=== PATIENT | female | born 1950 | race Caucasian/White ===

== ENCOUNTER 2018-09-14 16:28 | Inpatient (IN) ==
[2018-09-14] MEDS ORDERED: Acetaminophen 325 MG Tablet PO ONE (21:57)
[2018-09-14] MEDS ORDERED: Piperacil/Tazo 3.375 GM Premix 3.375 GM/50 ML PIGGYBACK IV.SIG ONE (21:57)
[2018-09-14] MEDS ORDERED: Vancomycin Inj 1,000 MG in Sodium Chlor 0.9% Inj 250 ML IV.SIG ONE (21:57)
--- NOTE | 2018-09-14 22:31 | XR ---
EXAM DATE: 09/14/2018 10:18 PM EST AGE/SEX: 68 years / Female INDICATIONS: Pain, sent by MD. Swelling in left foot, more in 1st digit for the last 2 months. CLINICAL DATA: This is the patient's initial encounter. Patient reports that signs and symptoms have been present for 2 months and indicates a pain score of 2/10. MEDICAL/SURGICAL HISTORY: Diabetes. Gastroesophageal reflux disease. Neuropathy. High blood pr essure. High cholesterol. None. COMPARISON: No prior exams available for comparison. FINDINGS: 3 views the left foot reveal an acute to subacute fracture involving the distal aspect of the proxima l phalanx of the great toe. This includes the articular surface with the interphalangeal joint. No si gnificant angulation or distraction. The remaining bony structures are intact. Spurring of the calcan eus. Degenerative changes involving the midfoot. Atherosclerotic calcifications. CONCLUSION: Acute to subacute fracture involving the proximal phalanx of the great toe as detailed above. Electronically signed by: Cristopher Smith MD Board Certified Radiologist 09/14/2018 10:30 PM EST
[2018-09-14 22:32] LABS: Baso % (Auto) 0.6 % (0.0-2.0); Eos # (Auto) 0.4 th/mm3 (0.0-0.4); Eos % (Auto) 6.2 % (0.0-4.0); Hematocrit 36.5 % (35.0-46.0); Lymph # (Auto) 0.9 th/mm3 (1.0-4.8); Lymph % (Auto) 12.7 % (9.0-44.0); Mean Corpuscular HGB Conc 32.8 % (32.0-36.0); Mean Corpuscular Volume 88.6 fL (80.0-100.0); Mean Platelet Volume 9.3 fL (7.0-11.0); Mono # (Auto) 0.7 th/mm3 (0.0-0.9); Mono % (Auto) 10.8 % (0.0-8.0); Neut # (Auto) 4.7 th/mm3 (1.8-7.7); Neut % (Auto) 69.7 % (16.0-70.0); Platelet Count 217 th/mm3 (150-450); Red Blood Count 4.12 mil/mm3 (4.00-5.30); Red Cell Distribution Width 13.7 % (11.6-17.2); White Blood Count 6.8 th/mm3 (4.0-11.0)
[2018-09-14 22:45] LABS: Carbon Dioxide 25.6 meq/L (21.0-32.0); Potassium 4.3 meq/L (3.5-5.1)
[2018-09-14] MEDS ORDERED: Bisacodyl 10 MG Supp RECTAL PRN (22:45)
[2018-09-14] MEDS ORDERED: Acetaminophen 325 MG Tablet PO PRN (22:45)
[2018-09-14] MEDS ORDERED: Vancomycin Consult Pharmacy OTHER PRN ×2 (22:45→23:12)
--- NOTE | 2018-09-14 22:48 | ED ---
HPI General Chief complaint: Skin/Abscess/Foreign Body Stated complaint: Sent by Doctor Zamarripa/Left foot Time Seen by Provider: 09/14/18 21:50 Source: patient Mode of arrival: ambulatory Limitations: no limitations History of Present Illness HPI narrative: Patient is a 68 year old female, with history of diabetes who comes in due to infection of her left first toe. She says this has been going on for about 4 weeks and has been getting worse. She says she went to her public relations today who took an XR and told her she had osteomyelitis and that she needed to come to the ED. She says she was told she would likely need amputation of her toe. She denies fever or chills. She says she has a burning pain to the toe. Severity is moderate. Related Data Home Medications Medication Instructions Recorded Confirmed famotidine 20 ng PO BID 09/14/18 09/14/18 gabapentin 300 mg PO TID 09/14/18 09/14/18 glipizide 2.5 mg PO DAILY 09/14/18 09/14/18 lisinopril 40 mg PO DAILY 09/14/18 09/14/18 metformin 500 mg PO DAILY 09/14/18 09/14/18 pantoprazole 40 mg PO DAILY 09/14/18 09/14/18 Allergies Allergy/AdvReac Type Severity Reaction Status Date / Time Sulfa (Sulfonamide Allergy Intermediate hives Verified 09/14/18 21:57 Antibiotics) Review of Systems ROS: all other systems reviewed are negative Constitutional Denies chills and Denies fever(s) ENT Denies dizziness Cardiovascular Denies chest pain and Denies dyspnea Respiratory Denies cough and Denies dyspnea Gastrointestinal Denies abdominal pain, Denies nausea and Denies vomiting Musculoskeletal Denies myalgias and Denies arthralgias Integumentary/Breasts Reports sores Neurologic Denies focal weakness and Denies numbness [facility] Medical History Medical History Acid reflux (Acute) Diabetes type 2, controlled (Acute) Heartburn (Acute) Hyperlipidemia (Acute) Hypertension (Acute) Surgical History Surgical History History of cholecystectomy (Acute) Social History Social History Substance History: No History of Abuse Second Hand Smoke Exposure: No Smoking Status: Never smoker How Often Do You Have a Drink Containing Alcohol: Monthly or less Recent Travel in [facility] within the Last 8 Weeks: No Recent Out of Country Travel within the Last 8 Weeks: No Immunization History Tetanus Immunization: >5 Years Exam Narrative Exam Narrative: GENERAL: Awake and alert, in no acute distress. SKIN: Erythema and warmth to the left first toe with wound to the plantar aspect of the toe. HEAD: Atraumatic. Normocephalic. EYES: Pupils equal and round. No scleral icterus. No injection or drainage. ENT: No nasal bleeding or discharge. Mucous membranes pink and moist. NECK: Trachea midline. No JVD. CARDIOVASCULAR: Regular rate and rhythm. No murmur appreciated. RESPIRATORY: No accessory muscle use. Clear to auscultation. Breath sounds equal bilaterally. GASTROINTESTINAL: Abdomen soft, non-tender, nondistended. MUSCULOSKELETAL: No obvious deformities. No clubbing. No cyanosis. Edema of the left foot into the lower leg. Pedal pulse intact. NEUROLOGICAL: Awake and alert. No obvious cranial nerve deficits. Motor grossly within normal limits. Normal speech. PSYCHIATRIC: Appropriate mood and affect; insight and judgment normal. Course Initial Documented Vital Signs Temperature 98.8 F 09/14/18 16:32 Pulse Rate 81 09/14/18 16:32 Respiratory Rate 16 09/14/18 16:32 Blood Pressure 151/70 H 09/14/18 16:32 Pulse Oximetry 98 09/14/18 16:32 Last Documented Vital Signs Temperature 98.8 F 09/14/18 16:32 Pulse Rate 70 09/14/18 21:51 Respiratory Rate 18 09/14/18 21:51 Blood Pressure 162/77 H 09/14/18 21:51 Pulse Oximetry 99 09/14/18 21:51 Medical Decision Making MDM Narrative Medical decision making narrative: Patient is a 68 year old female who comes in due to infection of her left first toe. Exam shows erythema, warmth and edema of the foot. IV established, labs sent. XR of the foot performed. MRI ordered. Given Vancomycin and Zosyn. Admitted for further management. Medical Screen Exam Complete: Yes Emergency Medical Condition: Yes Differential Diagnosis Differential Diagnosis: cellulitis vs osteomyelitis vs fracture Medical Records Medical records reviewed: Yes I reviewed the patient's medical records. Lab Data Lab results reviewed: Yes I reviewed the patient's lab results. Result diagrams: 09/14/18 22:12 09/14/18 22:12 Lab Results 09/14/18 09/14/18 Range/Units 22:12 22:12 WBC 6.8 (4.0-11.0) th/mm3 RBC 4.12 (4.00-5.30) mil/mm3 Hgb 12.0 (11.6-15.3) gm/dL Hct 36.5 (35.0-46.0) % MCV 88.6 (80.0-100.0) fL MCH 29.0 (27.0-34.0) pg MCHC 32.8 (32.0-36.0) % RDW 13.7 (11.6-17.2) % Plt Count 217 (150-450) th/mm3 MPV 9.3 (7.0-11.0) fL Neut % (Auto) 69.7 (16.0-70.0) % Lymph % (Auto) 12.7 (9.0-44.0) % [place] % (Auto) 10.8 H (0.0-8.0) % Eos % (Auto) 6.2 H (0.0-4.0) % Baso % (Auto) 0.6 (0.0-2.0) % Neut # (Auto) 4.7 (1.8-7.7) th/mm3 Lymph # (Auto) 0.9 L (1.0-4.8) th/mm3 [place] # (Auto) 0.7 (0.0-0.9) th/mm3 Eos # (Auto) 0.4 (0.0-0.4) th/mm3 Baso # (Auto) 0.0 (0.0-0.2) th/mm3 WBC Differential . Differential Comment Auto diff final Sodium 137 (136-145) meq/L Potassium 4.3 (3.5-5.1) meq/L Chloride 104 (98-107) meq/L Carbon Dioxide 25.6 (21.0-32.0) meq/L Anion Gap 7 (5-15) meq/L BUN 13 (7-18) mg/dL Creatinine 1.02 H (0.50-1.00) mg/dL Estimated GFR 54 L (>89) mL/min Random Glucose 91 (74-106) mg/dL Calcium 9.0 (8.5-10.1) mg/dL Imaging Data Radiologist's impression: Foot X-Ray 09/14/18 22:08 CONCLUSION: Acute to subacute fracture involving the proximal phalanx of the great toe as detailed above. Discharge Plan Discharge Disposition Patient Disposition: ED Admit(ED Internal Use Only) Discharge Condition Condition: Stable Discharge Order Discharge Orders: ED Use Only Admit Order (Routine); Ordered 09/14/18 Ordered By: Sarah Luna Discharge Details Diagnosis: Osteomyelitis Physicians Team ED Provider: Sarah Luna Primary Care Provider: UNKNOWN, Attending Provider: Ananya Olivia Other Providers: Guille Gautam Discharge Interventions Interventions: Vital Signs Last Done: 09/14/18 21:51 Status ED Status: Admitted Patient
[2018-09-14] MEDS ORDERED: Vancomycin Inj 2,000 MG in Sodium Chlor 0.9% Inj 500 ML IV.SIG STA (23:00)
[2018-09-14] MEDS ORDERED: Gadobutrol PF 10 MMOL/10 ML Vial (for RAD) IV.SIG ONE (23:07)
--- NOTE | 2018-09-14 23:32 | MR ---
EXAM DATE: 09/14/2018 11:23 PM EST AGE/SEX: 68 years / Female INDICATIONS: Osteomyelitis. Left great toe. CLINICAL DATA: This is the patient's initial encounter. Patient reports that signs and symptoms have been present for 2 months and indicates a pain score of 8/10. MEDICAL/SURGICAL HISTORY: . HTN, DM II, HLD, Acid Reflux Cholecystectomy. COMPARISON: [facility], FOOT COMPLETE LEFT 3V, 09/14/2018. . TECHNIQUE: Multiplanar, multisequence MRI examination was performed without contrast and after th e intravenous administration of 10 ml Gadavist (gadobutrol) single exam dose. FINDINGS: Bones: The osseous structures are in normal alignment. Bony edema is identified throughout the mid an d distal portion of the proximal phalanx of the first ray and proximally in the distal phalanx of the same digit. There are no obvious erosions present. Joint Spaces: No joint effusion or loose bodies are seen. The joint spaces are preserved. Tendons: The flexor tendons are intact. Soft Tissues: Unremarkable. Other: The plantar fascia is intact. No signal abnormalities are seen in the plantar musculature. Post Contrast: There are no abnormal areas of enhancement in the marrow, muscle or soft tissues on im ages obtained after intravenous administration of gadolinium. CONCLUSION: 1. Bony edema in the mid and distal portions of the proximal phalanx of the great toe characteristic of the fracture identified on plain film. 2. Mild edema within the proximal half of the distal phalanx of the great toe is probably reactive s econdary to the comminuted fracture of the adjacent phalanx. Electronically signed by: Jose Guadalupe Hein MD Board Certified Radiologist 09/14/2018 11:30 PM EST
[2018-09-15] MEDS ORDERED: Piperacil/Tazo 3.375 GM Premix 3.375 GM/50 ML PIGGYBACK IV.SIG SCH (02:00)
[2018-09-15] MEDS: Sod Chloride 0.9% Inj 1,000 ML IV.CONT SCH ×4 (02:21→23:38)
[2018-09-15] MEDS ORDERED: Insulin NovoLOG Aspart Correctional Sugar Inj SQ SCH (03:00)
[2018-09-15] MEDS: Piperacil/Tazo 3.375 GM Premix 3.375 GM/50 ML PIGGYBACK IV.SIG SCH ×4 (07:01→23:42)
[2018-09-15 07:23] LABS: Baso % (Auto) 0.9 % (0.0-2.0); Eos # (Auto) 0.3 th/mm3 (0.0-0.4); Eos % (Auto) 5.1 % (0.0-4.0); Hematocrit 33.1 % (35.0-46.0); Lymph # (Auto) 0.4 th/mm3 (1.0-4.8); Lymph % (Auto) 7.5 % (9.0-44.0); Mean Corpuscular HGB Conc 33.2 % (32.0-36.0); Mean Corpuscular Hemoglobin 29.8 pg (27.0-34.0); Mean Corpuscular Volume 89.9 fL (80.0-100.0); Mean Platelet Volume 9.2 fL (7.0-11.0); Mono # (Auto) 0.8 th/mm3 (0.0-0.9); Mono % (Auto) 14.2 % (0.0-8.0); Neut # (Auto) 4.1 th/mm3 (1.8-7.7); Neut % (Auto) 72.3 % (16.0-70.0); Platelet Count 179 th/mm3 (150-450); Red Blood Count 3.68 mil/mm3 (4.00-5.30); Red Cell Distribution Width 13.6 % (11.6-17.2); White Blood Count 5.6 th/mm3 (4.0-11.0)
[2018-09-15 07:33] LABS: Calcium 8.4 mg/dL (8.5-10.1); Carbon Dioxide 24.1 meq/L (21.0-32.0); Potassium 4.3 meq/L (3.5-5.1)
[2018-09-15] MEDS: Gabapentin 300 MG Capsule PO SCH ×3 (08:37→18:10)
[2018-09-15] MEDS: Insulin NovoLOG Aspart Correctional Sugar Inj SQ SCH ×4 (08:37→21:01)
[2018-09-15] MEDS: Senna/Docusate Sodium 8.6/50 MG Tablet PO SCH ×2 (08:38→21:02)
[2018-09-15] MEDS: Lisinopril 20 MG Tablet PO SCH (08:38)
[2018-09-15] MEDS ORDERED: Morphine Inj 4 MG/ML Vial IV.PUSH PRN (09:46)
[2018-09-15] MEDS ORDERED: Acetaminophen 325 MG Tablet PO PRN (09:46)
[2018-09-15] MEDS ORDERED: Naloxone Inj 0.4 MG/ML Vial IV.PUSH PRN (09:46)
--- NOTE | 2018-09-15 10:01 | P.HPIM ---
History of Present Illness Primary Care Physician: UNKNOWN Chief Complaint: Diabetic foot infection History of Present Illness: This is a 68-year-old female with a history of diabetes mellitus, hypertension, hyperlipidemia and GERD. She was sent by her site damage prevention technician to the ED because of diabetic foot infection with suspected osteomyelitis. Patient is being followed by Dr. Zamarripa. States she has improving right foot sores over metatarsal head and plantar surface of the great toe. She also has left great toe swelling and pain for 2 months. It has an ulcer on the plantar surface with drainage for the past 6 weeks no fever and chills. Patient reports of constant stinging sensation. She had outpatient x- ray yesterday which showed osteomyelitis. In the ED, repeat x-ray shows acute to subacute fracture involving the proximal phalanx of the great toe. Foot MRI with bony edema in the mid and distal portions of the proximal phalanx of the great toe. She has been started on IV vancomycin and Zosyn. All other systems reviewed negative Inpatient Certification Inpatient Certification: I certify that the inpatient services were ordered in accordance with Medicare regulations governing the order. This includes certification that hospital inpatient services are reasonable and necessary and in the case of services not specified as inpatient-only under 42 CFR 419.22(n), that they are appropriately provided as inpatient services in accordance to with the 2-midnight benchmark under 43 CFR 412.3(e) Estimated Total Length of Stay (Days): 3 Plans for Post Hospital Care: Not yet determined Review of Systems Review of Systems: all other systems reviewed are negative [facility] Medical History Medical History Acid reflux (Acute) Diabetes type 2, controlled (Acute) Heartburn (Acute) Hyperlipidemia (Acute) Hypertension (Acute) Surgical History Surgical History History of cholecystectomy (Acute) Family History Family History Other Colon cancer Social History Social History Substance History: No History of Abuse Second Hand Smoke Exposure: No Smoking Status: Never smoker How Often Do You Have a Drink Containing Alcohol: Monthly or less Recent Travel in [facility] within the Last 8 Weeks: No Recent Out of Country Travel within the Last 8 Weeks: No Immunization History Tetanus Immunization: >5 Years Medications and Allergies Allergies Allergy/AdvReac Type Severity Reaction Status Date / Time Sulfa (Sulfonamide Allergy Intermediate hives Verified 09/14/18 21:57 Antibiotics) Home Medications Medication Instructions Recorded Confirmed Type famotidine 20 ng PO BID 09/14/18 09/14/18 History gabapentin 300 mg PO TID 09/14/18 09/14/18 History glipizide 2.5 mg PO DAILY 09/14/18 09/14/18 History lisinopril 40 mg PO DAILY 09/14/18 09/14/18 History metformin 500 mg PO DAILY 09/14/18 09/14/18 History pantoprazole 40 mg PO DAILY 09/14/18 09/14/18 History Active Medications: Active Medications Acetaminophen (Tylenol) 650 mg PO Q4H PRN PRN Reason: Temp > 100.4 Last Admin: 09/15/18 08:38 Dose: 650 mg Al Hydroxide/Mg Hydroxide (Milk Of Magnesia Liq) 30 ml PO Q12H PRN PRN Reason: Mild Constipation Bisacodyl (Dulcolax Supp) 10 mg RECTAL DAILY PRN PRN Reason: SEVERE CONSITIPATION Dextrose (D50w Vial) 50 ml IV.PUSH UNSCH PRN PRN Reason: PER HYPOGLYCEMIA PROTOCOL Gabapentin (Neurontin) 300 mg PO TID [facility] Last Admin: 09/15/18 08:37 Dose: 300 mg Glucagon (Glucagon Inj) 1 mg OTHER PRN PRN PRN Reason: for Hypoglycemia Protocol Sodium Chloride (Ns Inj) 1,000 mls @ 100 mls/hr IV.CONT .Q10H [facility] Last Admin: 09/15/18 02:21 Dose: 100 mls/hr Piperacillin/Tazobactam/Dextrose (Zosyn 3.375 Gm Premix) 3.375 gm in 50 mls @ 100 mls/hr IV.SIG Q6H KITTY Last Infusion: 09/15/18 08:00 Dose: Infused Vancomycin HCl 2,000 mg/ (Sodium Chloride) 520 mls @ 250 mls/hr IV.SIG Q24H KITTY Insulin Aspart (Novolog Insulin Correctional Sugar Inj) 0 unit SQ ACHS KITTY; Protocol Last Admin: 09/15/18 08:37 Dose: Not Given Lactulose (Lactulose Liq) 30 ml PO DAILY PRN PRN Reason: SEVERE CONSITIPATION Lisinopril (Prinivil) 40 mg PO DAILY [facility] Last Admin: 09/15/18 08:38 Dose: 40 mg Miscellaneous Information ([facility] Ordered Lab Info) 1 each OTHER ONCE ONE Stop: 09/18/18 00:46 Ondansetron HCl (Zofran Inj) 4 mg IV.PUSH Q6H PRN PRN Reason: NAUSEA OR VOMITING Pantoprazole Sodium (Protonix) 40 mg PO DAILY [facility] Last Admin: 09/15/18 08:37 Dose: 40 mg Pharmacy Profile Note (Vancomycin Consult Pharmacy) 1 each OTHER UNSCH PRN PRN Reason: Pharmacy to dose Senna/Docusate Sodium (Yadira-Colace) 1 tab PO BID [facility] Last Admin: 09/15/18 08:38 Dose: Not Given Sennosides (Senokot) 17.2 mg PO Q12H PRN PRN Reason: Moderate Constipation Sodium Chloride (Ns Flush) 2 ml IV.FLUSH BID [facility] Last Admin: 09/15/18 08:39 Dose: 2 ml Sodium Chloride (Ns Flush) 2 ml IV.FLUSH PRN PRN PRN Reason: FLUSH AFTER USING IV ACCESS Physical Exam Vital signs: Vital Signs 09/14/18 16:32 09/14/18 21:51 09/14/18 23:51 Temperature 98.8 F Pulse Rate 81 70 59 L Respiratory Rate 16 18 18 Blood Pressure 151/70 H 162/77 H 150/91 H Pulse Oximetry 98 99 98 09/15/18 05:11 09/15/18 07:33 Temperature Pulse Rate 64 72 Respiratory Rate 18 16 Blood Pressure 129/62 122/81 Pulse Oximetry 100 Intake & Output 09/14/18 09/15/18 09/15/18 18:59 06:59 18:59 Intake Total 590 / 590 50 / 50 Balance 590 / 590 50 / 50 Weight 101.605 kg Intake: IV 590 / 590 50 / 50 Zosyn 3.375 GM Premix 3.375 gm 50 / 50 50 / 50 In 50 ml @ 100 mls/hr IV.SIG Q6H KITTY Rx#:[id number] Vancomycin Inj 2,000 MG In NS 540 / 540 Inj 500 ML @ 250 mls/hr IV.SIG STAT STA Rx#:[id number] Narrative: GENERAL: Well-developed and well-nourished in no distress SKIN: Warm and dry. HEAD: Atraumatic. Normocephalic. EYES: Pupils equal and round. No scleral icterus. No injection or drainage. ENT: No nasal bleeding or discharge. Mucous membranes pink and moist. NECK: Trachea midline. No JVD. CARDIOVASCULAR: Regular rate and rhythm. RESPIRATORY: No accessory muscle use. Clear to auscultation. Breath sounds equal bilaterally. GASTROINTESTINAL: Abdomen soft, non-tender, nondistended. MUSCULOSKELETAL: Extremities without clubbing, cyanosis, or edema. No obvious deformities. Ulcer plantar surface right great toe. Left foot with slight swelling, warmth and erythema in the forefoot especially in the great toe area. It is tender to touch. She also has a draining ulcer on the plantar surface of the right great toe NEUROLOGICAL: Awake and alert. No obvious cranial nerve deficits. Motor grossly within normal limits. Five out of 5 muscle strength in the arms and legs. Normal speech. PSYCHIATRIC: Appropriate mood and affect; insight and judgment normal. Results Labs CBC & Chem 7: 09/15/18 06:46 09/15/18 06:46 Imaging Impressions Foot X-Ray 09/14/18 22:08 CONCLUSION: Acute to subacute fracture involving the proximal phalanx of the great toe as detailed above. Foot MRI 09/14/18 22:21 CONCLUSION: 1. Bony edema in the mid and distal portions of the proximal phalanx of the great toe characteristic of the fracture identified on plain film. 2. Mild edema within the proximal half of the distal phalanx of the great toe is probably reactive secondary to the comminuted fracture of the adjacent phalanx. Caprini VTE Risk Assessment Caprini VTE Risk Assessment: No/Low Risk (score <= 1) Caprini Risk Assessment Model: Point Value = 1 Point Value = 2 Point Value = 3 Point Value = 5 Age 41-60 Minor surgery BMI > 25 kg/m2 Swollen legs Varicose veins or History of unexplained or recurrent spontaneous Oral contraceptives or hormone replacement Sepsis (< 1 month) Serious lung disease, including pneumonia (< 1 month) Abnormal pulmonary function Acute myocardial infarction Congestive heart failure (< 1 month) History of inflammatory bowel disease Medical patient at bed rest Age 61-74 Arthroscopic surgery Major open surgery (> 45 min) Laparoscopic surgery (> 45 min) Malignancy Confined to bed (> 72 hours) Immobilizing plaster cast Central venous access Age >= 75 History of VTE Family history of VTE Factor V Leiden Prothrombin [id number] Lupus anticoagulant Anticardiolipin antibodies Elevated serum homocysteine Heparin-induced thrombocytopenia Other congenital or acquired thrombophilia Stroke (< 1 month) Elective arthroplasty Hip, pelvis, or leg fracture Acute spinal cord injury (< 1 month) Prophylaxis Regimen: Total Risk Factor Score Risk Level Prophylaxis Regimen 0-1 Low Early ambulation 2 Moderate Order ONE of the following: *Sequential Compression Device (SCD) *Heparin 5000 units SQ BID 3-4 Higher Order ONE of the following medications: *Heparin 5000 units SQ TID *Enoxaparin/Lovenox 40 mg SQ daily (WT < 150 kg, CrCl > 30 mL/min) *Enoxaparin/Lovenox 30 mg SQ daily (WT < 150 kg, CrCl > 10-29 mL/min) *Enoxaparin/Lovenox 30 mg SQ BID (WT < 150 kg, CrCl > 30 mL/min) AND/OR *Sequential Compression Device (SCD) 5 or more Highest Order ONE of the following medications: *Heparin 5000 units SQ TID (Preferred with Epidurals) *Enoxaparin/Lovenox 40 mg SQ daily (WT < 150 kg, CrCl > 30 mL/min) *Enoxaparin/Lovenox 30 mg SQ daily (WT < 150 kg, CrCl > 10-29 mL/min) *Enoxaparin/Lovenox 30 mg SQ BID (WT < 150 kg, CrCl > 30 mL/min) AND *Sequential Compression Device (SCD) Assessment and Plan Plan This is a 68-year-old female with a history of diabetes mellitus, hypertension, hyperlipidemia and GERD. She was sent by her site damage prevention technician to the ED because of diabetic foot infection with suspected osteomyelitis involving the left great toe. Repeat x-ray shows acute to subacute fracture involving the proximal phalanx of the great toe. Foot MRI with bony edema in the mid and distal portions of the proximal phalanx of the great toe. Diabetic foot infection involving the left great toe with ulceration on the plantar surface. Keep n.p.o. awaiting podiatry consultation. Continue IV vancomycin and Zosyn and follow-up cultures. Pain management with Lortab and IV morphine counseled regarding narcotics Mild anemia 2/2 hemodilution. No gross bleeding will monitor DVT prophylaxis with SCD and early ambulation
[2018-09-15 18:09] LABS: Activated Partial Thrombo Time 30.9 sec (23.4-31.7); INR 1.1 Ratio
--- NOTE | 2018-09-15 18:39 | P.CON ---
History of Present Illness Service: Foot and ankle surgery/podiatry Consult date: 09/15/18 Reason for Consult: Right hallux infection Primary Care Provider: UNKNOWN Chief Complaint: Diabetic foot infection History of Present Illness: Podiatry consulted for this 68-year-old female with history of diabetes, hypertension, hyperlipidemia and GERD for right hallux possible osteomyelitis and infection. Patient was sent in to the hospital by her wound treatment rn Dr. Zamarripa. She states she does not recall any trauma to the toe she did not drop anything on it. Patient denies any nausea vomiting fevers and chills. Patient states there is been an ulcer for over 1 month. PMF - History History Provided By: Patient - Medical History Medical History: Medical History (Last Reviewed 09/15/18 @ 18:41 by Sarah Cox DPM) Acid reflux Diabetes type 2, controlled Heartburn Hyperlipidemia Hypertension - Surgical History Surgical History: Surgical History (Last Reviewed 09/15/18 @ 18:41 by Sarah Cox DPM) History of cholecystectomy - Family History Family History: Family History (Last Reviewed 09/15/18 @ 18:41 by Sarah Cox DPM) Other Colon cancer - Tobacco History Second Hand Smoke Exposure: No Tobacco Use In Past 30 Days: No Smoking Status: Never smoker - Alcohol History How Often Do You Have a Drink Containing Alcohol: Monthly or less - Substance Use History Substance History: No History of Abuse - Travel History Recent Travel in the [place] Within the Last 8 Weeks: No Recent Travel Out of the Country Within the Last 8 Weeks: No - Immunization History Tetanus Immunization: >5 Years Hx Influenza Vaccine This Season: Yes Medications and Allergies Active Medications: Active Medications Acetaminophen (Tylenol) 650 mg PO Q4H PRN PRN Reason: Temp > 100.4 Last Admin: 09/15/18 08:38 Dose: 650 mg Acetaminophen (Tylenol) 650 mg PO Q6HR PRN PRN Reason: PAIN SCALE 1 TO 2 Hydrocodone Bitart/Acetaminophen ([place] 5/325) 1 tab PO Q4H PRN PRN Reason: PAIN SCALE 3 TO 5 Hydrocodone Bitart/Acetaminophen ([place] 7.5/325) 1 tab PO Q4H PRN PRN Reason: PAIN SCALE 6 TO 10 Al Hydroxide/Mg Hydroxide (Milk Of Magnesia Liq) 30 ml PO Q12H PRN PRN Reason: Mild Constipation Bisacodyl (Dulcolax Supp) 10 mg RECTAL DAILY PRN PRN Reason: SEVERE CONSITIPATION Dextrose (D50w Vial) 50 ml IV.PUSH UNSCH PRN PRN Reason: PER HYPOGLYCEMIA PROTOCOL Gabapentin (Neurontin) 300 mg PO TID [facility] Last Admin: 09/15/18 18:10 Dose: 300 mg Glucagon (Glucagon Inj) 1 mg OTHER PRN PRN PRN Reason: for Hypoglycemia Protocol Sodium Chloride (Ns Inj) 1,000 mls @ 100 mls/hr IV.CONT .Q10H [facility] Last Admin: 09/15/18 10:28 Dose: 100 mls/hr Piperacillin/Tazobactam/Dextrose (Zosyn 3.375 Gm Premix) 3.375 gm in 50 mls @ 100 mls/hr IV.SIG Q6H [facility] Last Admin: 09/15/18 18:10 Dose: 100 mls/hr Vancomycin HCl 2,000 mg/ (Sodium Chloride) 520 mls @ 250 mls/hr IV.SIG Q24H [facility] Insulin Aspart (Novolog Insulin Correctional Sugar Inj) 0 unit SQ ACHS [facility]; Protocol Last Admin: 09/15/18 18:10 Dose: Not Given Lactulose (Lactulose Liq) 30 ml PO DAILY PRN PRN Reason: SEVERE CONSITIPATION Lisinopril (Prinivil) 40 mg PO DAILY [facility] Last Admin: 09/15/18 08:38 Dose: 40 mg Miscellaneous Information ([facility] Ordered Lab Info) 1 each OTHER ONCE ONE Stop: 09/18/18 00:46 Morphine Sulfate (Morphine Inj) 4 mg IV.PUSH Q3H PRN PRN Reason: BREAKTHROUGH PAIN Naloxone HCl (Narcan Inj) 0.4 mg IV.PUSH UNSCH PRN PRN Reason: SEE LABEL COMMENTS Ondansetron HCl (Zofran Inj) 4 mg IV.PUSH Q6H PRN PRN Reason: NAUSEA OR VOMITING Pantoprazole Sodium (Protonix) 40 mg PO DAILY [facility] Last Admin: 09/15/18 08:37 Dose: 40 mg Pharmacy Profile Note (Vancomycin Consult Pharmacy) 1 each OTHER UNSCH PRN PRN Reason: Pharmacy to dose Senna/Docusate Sodium (Yadira-Colace) 1 tab PO BID [facility] Last Admin: 09/15/18 08:38 Dose: Not Given Sennosides (Senokot) 17.2 mg PO Q12H PRN PRN Reason: Moderate Constipation Sodium Chloride (Ns Flush) 2 ml IV.FLUSH BID [facility] Last Admin: 09/15/18 08:39 Dose: 2 ml Sodium Chloride (Ns Flush) 2 ml IV.FLUSH PRN PRN PRN Reason: FLUSH AFTER USING IV ACCESS Allergies Allergy/AdvReac Type Severity Reaction Status Date / Time Sulfa (Sulfonamide Allergy Intermediate hives Verified 09/14/18 21:57 Antibiotics) Home Medications Medication Instructions Recorded Confirmed Type famotidine 20 ng PO BID 09/14/18 09/14/18 History gabapentin 300 mg PO TID 09/14/18 09/14/18 History glipizide 2.5 mg PO DAILY 09/14/18 09/14/18 History lisinopril 40 mg PO DAILY 09/14/18 09/14/18 History metformin 500 mg PO DAILY 09/14/18 09/14/18 History pantoprazole 40 mg PO DAILY 09/14/18 09/14/18 History Physical Exam Vital signs: Vital Signs 09/14/18 21:51 09/14/18 23:51 09/15/18 05:11 Temperature Pulse Rate 70 59 L 64 Respiratory Rate 18 18 18 Blood Pressure 162/77 H 150/91 H 129/62 Pulse Oximetry 99 98 09/15/18 07:33 09/15/18 12:17 09/15/18 12:36 Temperature Pulse Rate 72 72 67 Respiratory Rate 16 19 17 Blood Pressure 122/81 162/78 H 138/66 Pulse Oximetry 100 97 98 09/15/18 13:19 09/15/18 13:55 09/15/18 16:00 Temperature 98.2 F 98.4 F Pulse Rate 67 66 68 Respiratory Rate 18 18 Blood Pressure 140/65 146/67 H Pulse Oximetry 100 98 Intake & Output 09/14/18 09/15/18 09/15/18 18:59 06:59 18:59 Intake Total 590 / 590 1100 / 1100 Balance 590 / 590 1100 / 1100 Weight 101.605 kg 103.7 kg Intake: IV 590 / 590 1100 / 1100 NS Inj 1,000 ML @ 100 mls/hr IV 1000 / 1000 .CONT .Q10H [facility] Rx#:[id number] Zosyn 3.375 GM Premix 3.375 gm 50 / 50 100 / 100 In 50 ml @ 100 mls/hr IV.SIG Q6H [facility] Rx#:[id number] Vancomycin Inj 2,000 MG In NS 540 / 540 Inj 500 ML @ 250 mls/hr IV.SIG STAT [facility] Rx#:[id number] Other: Date of Last Bowel Movement 09/13/18 Weight On Admission 103.7 kg Narrative: GENERAL: This is a well-nourished, well-developed patient, in no apparent distress. SKIN: Right hallux ulcer HEAD: Atraumatic. EYES: Pupils equal round and reactive. ENT: Airway patent. NECK: Trachea midline. RESPIRATORY: Nonlabored breathing. MUSCULOSKELETAL:. Negative Homans sign bilaterally. NEUROLOGICAL: Awake and alert. Normal speech. Lower extremity physical exam: Vascular: Dorsalis pedis nonpalpable, posterior tibial nonpalpable. Capillary refill time within normal limits to digits x5 bilateral foot. Edema present right hallux with bulbous appearance. Neuro: Gross sensation intact to bilateral lower extremity. Pinpoint sensation decrease. No hyperalgesia noted to bilateral lower extremity Dermatology: Right hallux with increased erythema and edema noted and medial wound. There is seropurulent drainage to this wound. Wound is deep with probe to bone. Hyperkeratotic edges. Musculoskeletal: No tenderness to palpation noted. Results - Labs CBC & Chem 7: 09/15/18 06:46 09/15/18 06:46 Labs: Laboratory Results - last 24 hr 09/14/18 09/14/18 09/15/18 22:12 22:12 05:07 WBC 6.8 RBC 4.12 Hgb 12.0 Hct 36.5 MCV 88.6 MCH 29.0 MCHC 32.8 RDW 13.7 Plt Count 217 MPV 9.3 Neut % (Auto) 69.7 Lymph % (Auto) 12.7 [place] % (Auto) 10.8 H Eos % (Auto) 6.2 H Baso % (Auto) 0.6 Neut # (Auto) 4.7 Lymph # (Auto) 0.9 L [place] # (Auto) 0.7 Eos # (Auto) 0.4 Baso # (Auto) 0.0 WBC Differential . Differential Comment Auto diff final ESR PT INR APTT Sodium 137 Potassium 4.3 Chloride 104 Carbon Dioxide 25.6 Anion Gap 7 BUN 13 Creatinine 1.02 H Estimated GFR 54 L POC Glucose 76 Random Glucose 91 Calcium 9.0 09/15/18 09/15/18 09/15/18 06:46 06:46 06:46 WBC 5.6 RBC 3.68 L Hgb 11.0 L Hct 33.1 L MCV 89.9 MCH 29.8 MCHC 33.2 RDW 13.6 Plt Count 179 MPV 9.2 Neut % (Auto) 72.3 H Lymph % (Auto) 7.5 L [place] % (Auto) 14.2 H Eos % (Auto) 5.1 H Baso % (Auto) 0.9 Neut # (Auto) 4.1 Lymph # (Auto) 0.4 L [place] # (Auto) 0.8 Eos # (Auto) 0.3 Baso # (Auto) 0.0 WBC Differential . Differential Comment Auto diff final ESR 40 H PT INR APTT Sodium 141 Potassium 4.3 Chloride 109 H Carbon Dioxide 24.1 Anion Gap 8 BUN 12 Creatinine 0.98 Estimated GFR 56 L POC Glucose Random Glucose 86 Calcium 8.4 L 09/15/18 09/15/18 09/15/18 08:35 13:08 16:41 WBC RBC Hgb Hct MCV MCH MCHC RDW Plt Count MPV Neut % (Auto) Lymph % (Auto) [place] % (Auto) Eos % (Auto) Baso % (Auto) Neut # (Auto) Lymph # (Auto) [place] # (Auto) Eos # (Auto) Baso # (Auto) WBC Differential Differential Comment ESR PT INR APTT Sodium Potassium Chloride Carbon Dioxide Anion Gap BUN Creatinine Estimated GFR POC Glucose 94 101 82 Random Glucose Calcium 09/15/18 17:00 WBC RBC Hgb Hct MCV MCH MCHC RDW Plt Count MPV Neut % (Auto) Lymph % (Auto) [place] % (Auto) Eos % (Auto) Baso % (Auto) Neut # (Auto) Lymph # (Auto) [place] # (Auto) Eos # (Auto) Baso # (Auto) WBC Differential Differential Comment ESR PT 11.0 INR 1.1 APTT 30.9 Sodium Potassium Chloride Carbon Dioxide Anion Gap BUN Creatinine Estimated GFR POC Glucose Random Glucose Calcium - Imaging Impressions Foot X-Ray 09/14/18 22:08 CONCLUSION: Acute to subacute fracture involving the proximal phalanx of the great toe as detailed above. Foot MRI 09/14/18 22:21 CONCLUSION: 1. Bony edema in the mid and distal portions of the proximal phalanx of the great toe characteristic of the fracture identified on plain film. 2. Mild edema within the proximal half of the distal phalanx of the great toe is probably reactive secondary to the comminuted fracture of the adjacent phalanx. Assessment and Plan - Plan 68-year-old female with right hallux infection Patient examined and vitals all questions answered Suspect pathologic fracture from bone infection Bone scan to rule out osteomyelitis Secondary to clinical appearance of right hallux do suspect osteomyelitis Will sign out care to Dr. Gautam who will review imaging and discuss intervention with patient Anticipate surgical intervention in the next 48 hours
[2018-09-16] MEDS: Vancomycin Inj 2,000 MG in Sodium Chlor 0.9% Inj 500 ML IV.SIG SCH (01:47)
[2018-09-16] MEDS ORDERED: Chlorhexidine Gluconate 2% 1 Pack (2 Cloths) TOPICAL ONE (06:00)
[2018-09-16] MEDS ORDERED: Sodium Chlor 0.9% Inj 500 ML IV.CONT ONE (06:00)
[2018-09-16] MEDS: Piperacil/Tazo 3.375 GM Premix 3.375 GM/50 ML PIGGYBACK IV.SIG SCH ×4 (06:16→17:44)
[2018-09-16] MEDS: Sod Chloride 0.9% Inj 1,000 ML IV.CONT SCH ×3 (06:16→19:56)
[2018-09-16] MEDS: Lisinopril 20 MG Tablet PO SCH (08:19)
[2018-09-16] MEDS: Gabapentin 300 MG Capsule PO SCH ×3 (08:19→16:59)
[2018-09-16] MEDS: Senna/Docusate Sodium 8.6/50 MG Tablet PO SCH ×2 (08:19→20:50)
[2018-09-16] MEDS: Insulin NovoLOG Aspart Correctional Sugar Inj SQ SCH ×4 (08:20→20:50)
--- NOTE | 2018-09-16 10:22 | P.PNIM ---
Subjective Interval history: no fever or pain left hallux swelling started a=out as sore at the bottom about 2- 3 ff by Podaitry-started around 2 weeks ago does not recall any trauma no fever or chills diabetic- good hypoglycemic awareness- PCP Dr Parks- stateslast A1C- 5.9 on glipizide and metformin Physical Exam Vital signs: Vital Signs 09/15/18 12:17 09/15/18 12:36 09/15/18 13:19 Temperature Pulse Rate 72 67 67 Respiratory Rate 19 17 Blood Pressure 162/78 H 138/66 Pulse Oximetry 97 98 09/15/18 13:55 09/15/18 16:00 09/15/18 20:00 Temperature 98.2 F 98.4 F 98.2 F Pulse Rate 66 68 99 H Respiratory Rate 18 18 18 Blood Pressure 140/65 146/67 H 134/59 L Pulse Oximetry 100 98 98 09/15/18 23:15 09/16/18 00:00 09/16/18 04:00 Temperature 98.5 F Pulse Rate 72 76 69 Respiratory Rate 18 Blood Pressure 127/76 Pulse Oximetry 94 L 09/16/18 04:10 09/16/18 08:00 Temperature 98.6 F 98.1 F Pulse Rate 73 67 Respiratory Rate 18 18 Blood Pressure 111/53 L 123/58 L Pulse Oximetry 94 L 97 Intake & Output 09/15/18 09/16/18 09/16/18 18:59 06:59 18:59 Intake Total 1150 / 1150 1600 / 1600 50 / 50 Output Total 800 / 800 Balance 1150 / 1150 800 / 800 50 / 50 Weight 103.7 kg 103 kg Intake: IV 1150 / 1150 1570 / 1570 50 / 50 NS Inj 1,000 ML @ 100 mls/hr IV 1000 / 1000 1000 / 1000 .CONT .Q10H [facility] Rx#:[id number] Zosyn 3.375 GM Premix 3.375 gm 150 / 150 50 / 50 50 / 50 In 50 ml @ 100 mls/hr IV.SIG Q6H [facility] Rx#:[id number] Vancomycin Inj 2,000 MG In NS 520 / 520 Inj 500 ML @ 250 mls/hr IV.SIG Q24H [facility] Rx#:[id number] Oral 30 / 30 Output: Urine 800 / 800 Other: # Voids 2 Date of Last Bowel Movement 09/13/18 09/13/18 # Bowel Movements 0 0 Weight On Admission 103.7 kg Narrative: awake and alert no distress anciteric neck supple lungs- clear regular rhythm abdomensoft extrmeties left hallux- sausage shaped, + erythema mild extending to that anterior aspect fo the foot- per patient erythema has imp[roved a lot swelling improved too per patient overnight right foot - no open wounds, good epripheral pulses Results Labs CBC & Chem 7: 09/15/18 06:46 09/15/18 06:46 Labs: Microbiology 09/14/18 22:05 Blood - Peripheral Aerobic Blood Culture - Preliminary No growth in 1 day 09/14/18 22:05 Blood - Peripheral Anaerobic Blood Culture - Preliminary No growth in 1 day 09/14/18 22:10 Blood - Peripheral Aerobic Blood Culture - Preliminary No growth in 1 day 09/14/18 22:10 Blood - Peripheral Anaerobic Blood Culture - Preliminary No growth in 1 day Assessment and Plan Plan 68-year-old female with a history of diabetes mellitus, hypertension, hyperlipidemia and GERD. She was sent by her pot operator to the ED because of diabetic foot infection with suspected osteomyelitis involving the left great toe. Repeat x-ray shows acute to subacute fracture involving the proximal phalanx of the great toe. Foot MRI with bony edema in the mid and distal portions of the proximal phalanx of the great toe. Diabetic foot infection involving the left great toe- Cellulitis with ulceration on the plantar surface. with Subacute fracture on imaging study - - on Imaging study no signs of OM - patient does not recall any trauma - n.p.o. awaiting podiatry consultation. -Continue IV vancomycin and Zosyn and follow-up cultures. ESR mildly elevated -Pain management with Lortab and IV morphine counseled regarding narcotics -Podiatry ff- plan for procedure ? possible amputation- patient has not been informed by Podiatry of actual procedure - - jailene touch base with Podiatry Mild anemia 2/2 hemodilution. No gross bleeding will monitor DM type 2- A1C- 5.9 - restart home meds post procedure HTN- constinue on Triny DVT prophylaxis with SCD and early ambulation Progress Note: Quality VTE Deep Vein Thrombosis/Pulmonary Embolism Present on Admission: No
--- NOTE | 2018-09-16 11:41 | ECHRPT ---
EXAM DATE: 09/16/2018 11:33 AM EST AGE/SEX: 68 years / Female INDICATIONS: Osteomyelitis CLINICAL DATA: This is the patient's initial encounter. Patient reports that signs and symptoms have been present for 2 months and indicates a pain score of 3/10. MEDICAL/SURGICAL HISTORY: . acid reflux, type II diabetes mellitus, hyperlipidemia, hypertensio n . cholecystectomy COMPARISON: No prior exams available for comparison. TECHNIQUE: Four-cuff ankle and brachial pressures were obtained. Pulse cuff waveform tracings of the ankles were recorded, and ankle-brachial indices were calculated. PRESSURES (mmHg): Brachial (arm) : RIGHT: iv site, LEFT: 131 Ankle : RIGHT: 179, LEFT: 156 [place] : RIGHT: 1.37, LEFT: 1.19 TBI : RIGHT: 0.96, LEFT: CNO >220 FINDINGS: Pulsed-Cuff Waveform: There are good upstroke and a dicrotic downstroke of the tracings. Other: None. CONCLUSION: Elevated ankle-brachial index on the right. This may reflect densely calcified vessels. CT angiograph y of the abdominal aorta and lower extremities is recommended for further evaluation if clinically in dicated. The toe brachial indices are also nondiagnostic Electronically signed by: Tim Ortega MD Board Certified Radiologist 09/16/2018 11:39 AM EST
[2018-09-16] MEDS: Dextrose 50% in Water 50 ML Vial IV.PUSH PRN ×2 (13:46→17:05)
--- NOTE | 2018-09-16 14:20 | NM ---
EXAM DATE: 09/16/2018 2:04 PM EST AGE/SEX: 68 years / Female INDICATIONS: Ulcer on left hallux. CLINICAL DATA: This is the patient's initial encounter. Patient reports that signs and symptoms have been present for 1 month and indicates a pain score of 0/10. MEDICAL/SURGICAL HISTORY: Diabetes. Hypertension. Hyperlipidemia. Cholecystectomy. COMPARISON: No prior exams available for comparison. TECHNIQUE: Bone scan was performed in sagittal, axial and coronal planes. Attenuation correction was performed with computed tomography and both the attenuation correction and non-attenuation corrected data sets were reviewed. PRIOR BONE SCANS: No correlative bone scan available for comparison. DOSE: 32.0 mCi Tc99m MDP IV IMAGING: SPECT/CT imaging with fusion was performed. RADIATION DOSE: 1.90 CTDIvol(mGy) FINDINGS: There is uptake involving bilateral tarsal metatarsal joints worse on the left side due to chronic de generative change. There is abnormal uptake involving the first proximal phalanx distally near the jordi int space which demonstrates abnormal uptake could be seen with osteomyelitis in the appropriate clin ical setting, however the the CT portion of the exam demonstrates fractures at this site extending in tra-articularly and therefore the uptake could be due to fracture or possibly superimposed osteomyeli tis. CONCLUSION: 1. The patient has fractures seen on CT portion of the exam involving distal portion of the first pr oximal phalanx extending intra-articularly with abnormal uptake. The uptake could be due to fracture, however superimposed osteomyelitis is not excluded since the patient's ulcers in this location. Electronically signed by: Chyna Solares MD Board Certified Radiologist 09/16/2018 2:19 PM EST
[2018-09-16] MEDS ORDERED: fentaNYL Citrate Inj 250 MCG/5 ML Ampul ONE (17:40)
[2018-09-16] MEDS ORDERED: Bupivacaine PF 0.25% Inj 30 ML Vial ONE (17:48)
[2018-09-16] MEDS ORDERED: Phenylephrine/NS 1000 MCG/10ML Syringe IV.PUSH ONE (18:03)
--- NOTE | 2018-09-16 19:01 | P.BOP ---
- Preoperative Diagnosis (1) Acute osteomyelitis of toe of left foot - Postoperative Diagnosis (1) Acute osteomyelitis of toe of left foot Date of procedure: 09/16/18 Procedure: 1. Amputation left great toe Left foot two semielliptical incisions made to encompass left hallux. Culture swab taken from purulent area on toe that was removed. Tissue from residual wound sent for culture. Sesamoids removed and sent with hallux to pathology. Irrigation with 3L normal saline and bone biopsy taken from medial eminence of 1st metatarsal head area and sent as bone biopsy. Healthy bleeding tissue without necrosis noted at this level. Primary closure with 2-0 nylon suture, followed by dressing with xeroform, 4x4, abd, cast padding, luther left foot. No tourniquet utilized. DISPOSITION: Heel contact weightbearing only in surgical shoe to left foot Culture and bone biopsy pending. I Anticipate all infection removed with surgical procedure. Implants: n/a Anesthesia: GETA, local (10mL 0.5% marcaine plain) Surgeon: Guille Gautam DPM Judicial Reporter: staff Estimated blood loss (mL): 10 Pathology: other (1. hallux and sesamoids left foot to pathology, 2. bone biopsy left 1st metatarsal head to pathology, 3. culture left hallux, 4. culture left foot) Condition: stable Disposition: PACU
--- NOTE | 2018-09-16 19:40 | XR ---
EXAM DATE: 09/16/2018 7:36 PM EST AGE/SEX: 68 years / Female INDICATIONS: Post amputation of the first digit of the left foot. CLINICAL DATA: This is the patient's subsequent encounter. Patient reports that signs and symptoms h ave been present for 3 days and indicates a pain score of Nonresponsive. MEDICAL/SURGICAL HISTORY: . Diabetes. Gastroesophageal reflux disease. Neuropathy. High blood p ressure. High cholesterol. None. COMPARISON: [facility] [place], FOOT COMPLETE LEFT 3V, 09/14/2018. . FINDINGS: There is amputation of the first digit at the level of the metatarsophalangeal joint with osteotomy o f the first distal metatarsal bone medially. Punctate radiopaque densities are present adjacent to os teotomy site in the soft tissues. The rest of the examination has not changed. CONCLUSION: Post amputation, otherwise not changed. Electronically signed by: Chyna Solares MD Board Certified Radiologist 09/16/2018 7:39 PM EST
--- NOTE | 2018-09-16 22:28 | ECG ---
Date Performed: 09/16/2018 Time Performed: 17:54:20 PTAGE: 68 years EKG: Sinus rhythm NONSPECIFIC T-WAVE ABNORMALITY BORDERLINE ECG NO PREVIOUS TRACING DOCTOR: Nav Bartlett Interpretating Date/Time 09/16/2018 22:27:57
[2018-09-17] MEDS: Piperacil/Tazo 3.375 GM Premix 3.375 GM/50 ML PIGGYBACK IV.SIG SCH ×5 (00:45→23:02)
[2018-09-17] MEDS: Vancomycin Inj 2,000 MG in Sodium Chlor 0.9% Inj 500 ML IV.SIG SCH (00:47)
[2018-09-17] MEDS: Sod Chloride 0.9% Inj 1,000 ML IV.CONT SCH ×4 (00:47→23:03)
[2018-09-17] MEDS: Senna/Docusate Sodium 8.6/50 MG Tablet PO SCH ×2 (08:28→20:47)
[2018-09-17] MEDS: Insulin NovoLOG Aspart Correctional Sugar Inj SQ SCH ×4 (08:28→22:35)
[2018-09-17] MEDS: Gabapentin 300 MG Capsule PO SCH ×3 (08:28→17:13)
[2018-09-17] MEDS: Lisinopril 20 MG Tablet PO SCH (08:28)
--- NOTE | 2018-09-17 10:24 | P.PNIM ---
Subjective Interval history: awake and alert patient already up and ambulating with PT and doing well no pain complains at all Physical Exam Vital signs: Vital Signs 09/16/18 12:00 09/16/18 16:00 09/16/18 18:53 Temperature 98 F 97.8 F 98.3 F Pulse Rate 67 63 89 Respiratory Rate 18 18 12 Blood Pressure 145/95 H 175/70 H 112/55 L Pulse Oximetry 100 100 100 09/16/18 18:56 09/16/18 19:00 09/16/18 19:15 Temperature Pulse Rate 64 65 61 Respiratory Rate 10 L 10 L 10 L Blood Pressure 105/53 L 106/55 L 141/65 H Pulse Oximetry 99 100 100 09/16/18 19:30 09/16/18 19:45 09/16/18 20:05 Temperature 98.1 F Pulse Rate 62 60 59 L Respiratory Rate 13 14 Blood Pressure 132/64 132/63 Pulse Oximetry 100 100 09/16/18 20:35 09/16/18 23:20 09/16/18 23:57 Temperature 97.6 F 98.1 F Pulse Rate 59 L 59 L 56 L Respiratory Rate 17 17 Blood Pressure 143/60 H 148/66 H Pulse Oximetry 97 97 09/17/18 03:46 09/17/18 04:10 09/17/18 08:00 Temperature 98.1 F 98.4 F Pulse Rate 61 64 61 Respiratory Rate 17 18 Blood Pressure 136/63 157/67 H Pulse Oximetry 97 94 L Intake & Output 09/16/18 09/17/18 09/17/18 18:59 06:59 18:59 Intake Total 1150 / 1150 3250 / 3250 Output Total 1200 / 1200 1505 / 1505 Balance -50 / -50 1745 / 1745 Weight 103.4 kg Intake: IV 1150 / 1150 2270 / 2270 NS Inj 1,000 ML @ 100 mls/hr IV 1000 / 1000 1650 / 1650 .CONT .Q10H KITTY Rx#:[id number] Zosyn 3.375 GM Premix 3.375 gm 150 / 150 100 / 100 In 50 ml @ 100 mls/hr IV.SIG Q6H KITTY Rx#:[id number] Vancomycin Inj 2,000 MG In NS 520 / 520 Inj 500 ML @ 250 mls/hr IV.SIG Q24H KITTY Rx#:[id number] Oral 0 / 0 0 / 0 Tube Feeding 480 / 480 Anesthesia Amount 500 / 500 Output: Urine 1200 / 1200 1500 / 1500 Estimated Blood Loss 5 / 5 Other: # Bowel Movements 0 0 Narrative: awake and alert, no distress anciteric' lungs-clear regular rhythm abdomen-soft extremites - left LE- post op dressing in place gait- slow but stedy- with a walker- Results Labs CBC & Chem 7: 09/18/18 08:20 09/18/18 08:20 Labs: Microbiology 09/16/18 18:35 Tissue - Foot Gram Stain - Final 09/16/18 18:35 Wound - Toe Gram Stain - Final 09/14/18 22:05 Blood - Peripheral Aerobic Blood Culture - Preliminary No growth in 2 days 09/14/18 22:05 Blood - Peripheral Anaerobic Blood Culture - Preliminary No growth in 2 days 09/14/18 22:10 Blood - Peripheral Aerobic Blood Culture - Preliminary No growth in 2 days 09/14/18 22:10 Blood - Peripheral Anaerobic Blood Culture - Preliminary No growth in 2 days Imaging Imaging: Impressions Extremity Arterial Study 09/15/18 00:00 CONCLUSION: Elevated ankle-brachial index on the right. This may reflect densely calcified vessels. CT angiography of the abdominal aorta and lower extremities is recommended for further evaluation if clinically indicated. The toe brachial indices are also nondiagnostic Foot X-Ray 09/16/18 00:00 CONCLUSION: Post amputation, otherwise not changed. SPECT Scan-Bone NM 09/16/18 00:00 CONCLUSION: 1. The patient has fractures seen on CT portion of the exam involving distal portion of the first proximal phalanx extending intra-articularly with abnormal uptake. The uptake could be due to fracture, however superimposed osteomyelitis is not excluded since the patient's ulcers in this location. Assessment and Plan Plan 68-year-old female with a history of diabetes mellitus, hypertension, hyperlipidemia and GERD. She was sent by her customer marketing manager to the ED because of diabetic foot infection with suspected osteomyelitis involving the left great toe. Repeat x-ray shows acute to subacute fracture involving the proximal phalanx of the great toe. Foot MRI with bony edema in the mid and distal portions of the proximal phalanx of the great toe. 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 with Subacute fracture on imaging study - - on Imaging study no signs of OM - patient does not recall any trauma -Continue IV vancomycin and Zosyn and follow-up cultures. ESR mildly elevated -Pain management with Lortab and IV morphine counseled regarding narcotics - ID consult for recommendation - cultures from OR pending , ff biopsy report Mild anemia 2/2 hemodilution. No gross bleeding will monitor DM type 2- A1C- 5.9 - good readings - on metformin and glipizide at home - we will start Metformin 500 mg daily HTN- continue on Triny DVT prophylaxis with SCD and early ambulation ADD_ 4:15 pm patient went into short run of SVT/a fib - asymptomatic , no chest pain or shortness of breath, no wheezing - history of - ithcing - intermittent- being wrok up as op - - spontaneoulsy converted to sinus - check BMP/electrolytes now - check Echo - start low dose Lopressor 12.5 mg po bid and monitor Progress Note: Quality VTE Deep Vein Thrombosis/Pulmonary Embolism Present on Admission: No
--- NOTE | 2018-09-17 13:57 | MB ---
cc: Tera Fitzgerald MD DATE: 09/17/2018 REQUESTING PHYSICIAN: Juan Sheppard MD. REASON FOR CONSULTATION: Diabetic foot infection, status post left hallux amputation. Biopsy pending. HISTORY OF PRESENT ILLNESS: This is a 68-year-old white female who has history of diabetes mellitus. The patient developed a wound at the left great toe, which she was treating herself at home. She developed redness and swelling in the left great toe on the top of the foot beyond the toes and swelling up to her ankle. She was evaluated by podiatry and sent to the emergency department for evaluation. She reports that the problem was ongoing for about 4 weeks. An x-ray was performed and she was told that she had osteomyelitis. She subsequently underwent MRI of the left foot and there was bony edema in the mid and distal portion of the proximal phalanx characteristic of a fracture. There was also mild edema within the proximal half of the distal phalanx of the great toe as well. The patient was evaluated by the maintenance construction helper and a SPECT scan revealed fracture that was seen on the CT scan. There was also abnormal uptake which was felt likely to be due to fracture versus superimposed osteomyelitis. She underwent amputation of the left great toe and sample was sent for pathology and also tissue was sent for microbiologic culture as well. The patient is in no acute distress. She is awake and alert. She has been afebrile since admission and the white blood cell count is normal. Sedimentation rate is elevated at 40. The patient notes that she has constipation yesterday and today. Otherwise, she has no other complaints. She states that her blood sugar has been under good control. However, since hospitalization, it is noted to be elevated a few times. PAST MEDICAL HISTORY: Diabetes mellitus, non-insulin dependent, hypertension, hyperlipidemia, acid reflux, history of cholecystectomy. ALLERGIES: SULFA. MEDICATIONS: 1. Vancomycin. 2. Piperacillin/tazobactam 3. Yadira-Colace. 4. Protonix. 5. Glucophage. 6. Prinivil. 7. Neurontin. 8. Emerado 5 p.r.n. SOCIAL HISTORY: No tobacco. Occasional alcohol, approximately monthly. No illicit drugs. FAMILY HISTORY: Noncontributory. REVIEW OF SYSTEMS: All systems have been reviewed and are negative, except for constipation. PHYSICAL EXAMINATION: GENERAL: She is a pleasant, slender female in no acute distress. She is awake and alert and oriented. VITAL SIGNS: Temperature 98.4, BP 123/90, respirations 18, heart rate 75. HEENT: Head is atraumatic. Extraocular movements are grossly intact. Pupils reactive to light, without icterus. Oropharynx: Moist mucosa. The patient is edentulous. NECK: Supple without adenopathy. LUNGS: Clear breath sounds bilaterally. HEART: Regular S1 and S2, without murmurs. ABDOMEN: Bowel sounds present. Soft, nontender. EXTREMITIES: The left foot is wrapped in a surgical dressing and is status post amputation of the left great toe. There is visible swelling, but sensation is intact at the remaining toes. SKIN: No diffuse rash. NEUROLOGIC: No gross focal finding. PSYCHIATRIC: The patient is calm and cooperative. LABORATORY DATA: WBC 5.6, platelet 179, hemoglobin 11.0, creatinine 0.79. Estimated GFR 72. IMPRESSION: Diabetic foot infection/osteomyelitis involving the left great toe. The patient is status post amputation of the left great toe. Wound culture pending. Pathology evaluation pending. RECOMMENDATIONS: 1. Continue vancomycin. 2. Continue piperacillin/tazobactam. 3. Monitor wound culture. 4. Monitor pathology sampling. Further recommendation regarding antibiotics will be made once culture is available and pathology evaluation is available. Depending on those results, she may or may not need additional antibiotics, but attention will need to be focused on healing of the wound. Thank you for this consultation. MD ADILENE Garcias/ts , 01:04 PM , 01:17 PM
--- NOTE | 2018-09-17 16:16 | P.PNPOD ---
Physical Exam Vital signs: Vital Signs 09/16/18 18:53 09/16/18 18:56 09/16/18 19:00 Temperature 98.3 F Pulse Rate 89 64 65 Respiratory Rate 12 10 L 10 L Blood Pressure 112/55 L 105/53 L 106/55 L Pulse Oximetry 100 99 100 09/16/18 19:15 09/16/18 19:30 09/16/18 19:45 Temperature 98.1 F Pulse Rate 61 62 60 Respiratory Rate 10 L 13 14 Blood Pressure 141/65 H 132/64 132/63 Pulse Oximetry 100 100 100 09/16/18 20:05 09/16/18 20:35 09/16/18 23:20 Temperature 97.6 F 98.1 F Pulse Rate 59 L 59 L 59 L Respiratory Rate 17 17 Blood Pressure 143/60 H 148/66 H Pulse Oximetry 97 97 09/16/18 23:57 09/17/18 03:46 09/17/18 04:10 Temperature 98.1 F Pulse Rate 56 L 61 64 Respiratory Rate 17 Blood Pressure 136/63 Pulse Oximetry 97 09/17/18 08:00 09/17/18 12:00 Temperature 98.4 F 98.4 F Pulse Rate 61 75 Respiratory Rate 18 18 Blood Pressure 157/67 H 123/90 Pulse Oximetry 94 L 100 Intake & Output 09/16/18 09/17/18 09/17/18 18:59 06:59 18:59 Intake Total 1150 / 1150 3250 / 3250 1050 / 1050 Output Total 1200 / 1200 1505 / 1505 Balance -50 / -50 1745 / 1745 1050 / 1050 Weight 103.4 kg Intake: IV 1150 / 1150 2270 / 2270 1050 / 1050 NS Inj 1,000 ML @ 100 mls/hr IV 1000 / 1000 1650 / 1650 1000 / 1000 .CONT .Q10H KITTY Rx#:[id number] Zosyn 3.375 GM Premix 3.375 gm 150 / 150 100 / 100 50 / 50 In 50 ml @ 100 mls/hr IV.SIG Q6H KITTY Rx#:[id number] Vancomycin Inj 2,000 MG In NS 520 / 520 Inj 500 ML @ 250 mls/hr IV.SIG Q24H KITTY Rx#:[id number] Oral 0 / 0 0 / 0 Tube Feeding 480 / 480 Anesthesia Amount 500 / 500 Output: Urine 1200 / 1200 1500 / 1500 Estimated Blood Loss 5 / 5 Other: # Bowel Movements 0 0 Medications and Allergies Active Medications: Active Medications Acetaminophen (Tylenol) 650 mg PO Q4H PRN PRN Reason: Temp > 100.4 Last Admin: 09/15/18 08:38 Dose: 650 mg Acetaminophen (Tylenol) 650 mg PO Q6HR PRN PRN Reason: PAIN SCALE 1 TO 2 Hydrocodone Bitart/Acetaminophen (Electra 5/325) 1 tab PO Q4H PRN PRN Reason: PAIN SCALE 3 TO 5 Last Admin: 09/16/18 07:33 Dose: 1 tab Hydrocodone Bitart/Acetaminophen (Electra 7.5/325) 1 tab PO Q4H PRN PRN Reason: PAIN SCALE 6 TO 10 Al Hydroxide/Mg Hydroxide (Milk Of Magnesia Liq) 30 ml PO Q12H PRN PRN Reason: Mild Constipation Bisacodyl (Dulcolax Supp) 10 mg RECTAL DAILY PRN PRN Reason: SEVERE CONSITIPATION Dextrose (D50w Vial) 50 ml IV.PUSH UNSCH PRN PRN Reason: PER HYPOGLYCEMIA PROTOCOL Last Admin: 09/16/18 17:05 Dose: 50 ml Gabapentin (Neurontin) 300 mg PO TID ON LICENSE OF [facility] Last Admin: 09/17/18 12:50 Dose: 300 mg Glucagon (Glucagon Inj) 1 mg OTHER PRN PRN PRN Reason: for Hypoglycemia Protocol Sodium Chloride (Ns Inj) 1,000 mls @ 100 mls/hr IV.CONT .Q10H ON LICENSE OF [facility] Last Admin: 09/17/18 11:36 Dose: 100 mls/hr Piperacillin/Tazobactam/Dextrose (Zosyn 3.375 Gm Premix) 3.375 gm in 50 mls @ 100 mls/hr IV.SIG Q6H ON LICENSE OF [facility] Last Infusion: 09/17/18 13:12 Dose: Infused Vancomycin HCl 2,000 mg/ (Sodium Chloride) 520 mls @ 250 mls/hr IV.SIG Q24H ON LICENSE OF [facility] Last Infusion: 09/17/18 03:30 Dose: Infused Insulin Aspart (Novolog Insulin Correctional Sugar Inj) 0 unit SQ ACHS ON LICENSE OF [facility]; Protocol Last Admin: 09/17/18 12:51 Dose: 1 unit Lactulose (Lactulose Liq) 30 ml PO DAILY PRN PRN Reason: SEVERE CONSITIPATION Lisinopril (Prinivil) 40 mg PO DAILY ON LICENSE OF [facility] Last Admin: 09/17/18 08:28 Dose: 40 mg Metformin HCl (Glucophage) 500 mg PO DAILY ON LICENSE OF [facility] Last Admin: 09/17/18 11:35 Dose: 500 mg Miscellaneous Information ([facility] Ordered Lab Info) 1 each OTHER ONCE ONE Stop: 09/18/18 00:46 Miscellaneous Information ([facility]) 0 each OTHER UNSCH PRN PRN Reason: SEE LABEL COMMENTS Stop: 09/17/18 18:54 Morphine Sulfate (Morphine Inj) 4 mg IV.PUSH Q3H PRN PRN Reason: BREAKTHROUGH PAIN Naloxone HCl (Narcan Inj) 0.4 mg IV.PUSH UNSCH PRN PRN Reason: SEE LABEL COMMENTS Ondansetron HCl (Zofran Inj) 4 mg IV.PUSH Q6H PRN PRN Reason: NAUSEA OR VOMITING Pantoprazole Sodium (Protonix) 40 mg PO DAILY ON LICENSE OF [facility] Last Admin: 09/17/18 08:28 Dose: 40 mg Pharmacy Profile Note (Vancomycin Consult Pharmacy) 1 each OTHER UNSCH PRN PRN Reason: Pharmacy to dose Senna/Docusate Sodium (Yadira-Colace) 1 tab PO BID ON LICENSE OF [facility] Last Admin: 09/17/18 08:28 Dose: 1 tab Sennosides (Senokot) 17.2 mg PO Q12H PRN PRN Reason: Moderate Constipation Sodium Chloride (Ns Flush) 2 ml IV.FLUSH BID ON LICENSE OF [facility] Last Admin: 09/17/18 08:28 Dose: Not Given Sodium Chloride (Ns Flush) 2 ml IV.FLUSH PRN PRN PRN Reason: FLUSH AFTER USING IV ACCESS Allergies Allergy/AdvReac Type Severity Reaction Status Date / Time Sulfa (Sulfonamide Allergy Intermediate hives Verified 09/14/18 21:57 Antibiotics) Home Medications Medication Instructions Recorded Confirmed Type famotidine 20 ng PO BID 09/14/18 09/14/18 History gabapentin 300 mg PO TID 09/14/18 09/14/18 History glipizide 2.5 mg PO DAILY 09/14/18 09/14/18 History lisinopril 40 mg PO DAILY 09/14/18 09/14/18 History metformin 500 mg PO DAILY 09/14/18 09/14/18 History pantoprazole 40 mg PO DAILY 09/14/18 09/14/18 History Results - Labs CBC & Chem 7: 09/18/18 08:20 09/18/18 08:20 Laboratory Results - last 24 hr 09/16/18 09/16/18 09/16/18 16:59 17:31 18:58 Creatinine Estimated GFR POC Glucose 65 L 122 H 81 09/16/18 09/17/18 09/17/18 20:45 06:20 08:26 Creatinine 0.79 Estimated GFR 72 L POC Glucose 147 H 147 H 09/17/18 12:51 Creatinine Estimated GFR POC Glucose 188 H Microbiology 09/16/18 18:35 Tissue - Foot Gram Stain - Final 09/16/18 18:35 Tissue - Foot Wound Culture - Preliminary No growth in 24 hours 09/16/18 18:35 Wound - Toe Gram Stain - Final 09/16/18 18:35 Wound - Toe Wound Culture - Preliminary gram negative rods 09/14/18 22:05 Blood - Peripheral Aerobic Blood Culture - Preliminary No growth in 3 days 09/14/18 22:05 Blood - Peripheral Anaerobic Blood Culture - Preliminary No growth in 3 days 09/14/18 22:10 Blood - Peripheral Aerobic Blood Culture - Preliminary No growth in 3 days 09/14/18 22:10 Blood - Peripheral Anaerobic Blood Culture - Preliminary No growth in 3 days - Imaging Impressions Foot X-Ray 09/16/18 00:00 CONCLUSION: Post amputation, otherwise not changed. Assessment and Plan - Assessment (1) Acute osteomyelitis of toe of left foot Code(s): M86.172 - Other acute osteomyelitis, left ankle and foot Status: Acute - Plan s/p Amputation left hallux. Pathology pending Culture = gram - rods from toe, which was removed Culture from residual foot with no growth Dressing clean, dry. Keep intact. I am ok with discharge when pathology is back, which will likely take a few more days. Continue IV antibiotics in meantime. Will likely change bandage Wednesday.
[2018-09-17] MEDS ORDERED: Morphine Inj 4 MG/ML Vial IV.PUSH PRN (16:44)
[2018-09-17] MEDS: Metoprolol Tartrate 25 MG Tablet PO SCH ×2 (17:15→20:47)
[2018-09-17 18:13] LABS: Calcium 8.2 mg/dL (8.5-10.1); Carbon Dioxide 23.9 meq/L (21.0-32.0); Potassium 4.1 meq/L (3.5-5.1)
[2018-09-18] MEDS ORDERED: Pharmacy Ordered Lab Info OTHER ONE (00:45)
[2018-09-18] MEDS: Vancomycin Inj 2,000 MG in Sodium Chlor 0.9% Inj 500 ML IV.SIG SCH (01:30)
[2018-09-18] MEDS: Piperacil/Tazo 3.375 GM Premix 3.375 GM/50 ML PIGGYBACK IV.SIG SCH ×2 (06:04→13:00)
[2018-09-18 08:34] LABS: Baso # (Auto) 0.1 th/mm3 (0.0-0.2); Baso % (Auto) 0.9 % (0.0-2.0); Eos # (Auto) 0.1 th/mm3 (0.0-0.4); Eos % (Auto) 1.5 % (0.0-4.0); Hematocrit 33.8 % (35.0-46.0); Hemoglobin 11.1 gm/dL (11.6-15.3); Lymph # (Auto) 1.7 th/mm3 (1.0-4.8); Mean Corpuscular HGB Conc 32.8 % (32.0-36.0); Mean Corpuscular Hemoglobin 29.1 pg (27.0-34.0); Mean Corpuscular Volume 88.7 fL (80.0-100.0); Mean Platelet Volume 8.9 fL (7.0-11.0); Mono # (Auto) 0.6 th/mm3 (0.0-0.9); Mono % (Auto) 8.6 % (0.0-8.0); Neut # (Auto) 5.1 th/mm3 (1.8-7.7); Platelet Count 289 th/mm3 (150-450); Red Blood Count 3.81 mil/mm3 (4.00-5.30); Red Cell Distribution Width 13.5 % (11.6-17.2); White Blood Count 7.5 th/mm3 (4.0-11.0)
[2018-09-18] MEDS: Lisinopril 20 MG Tablet PO SCH (08:52)
[2018-09-18] MEDS: Gabapentin 300 MG Capsule PO SCH ×3 (08:52→17:51)
[2018-09-18] MEDS: Metoprolol Tartrate 25 MG Tablet PO SCH ×3 (08:52→20:58)
[2018-09-18] MEDS: Insulin NovoLOG Aspart Correctional Sugar Inj SQ SCH ×4 (08:53→20:59)
[2018-09-18] MEDS: Senna/Docusate Sodium 8.6/50 MG Tablet PO SCH ×2 (08:54→20:58)
[2018-09-18 08:58] LABS: Calcium 8.7 mg/dL (8.5-10.1); Carbon Dioxide 24.4 meq/L (21.0-32.0); Magnesium 1.9 mg/dL (1.5-2.5); Potassium 3.8 meq/L (3.5-5.1)
[2018-09-18 09:11] LABS: Thyroid Stimulating Hormone 3.96 uIU/mL (0.358-3.740)
--- NOTE | 2018-09-18 09:42 | ECG ---
Date Performed: 09/18/2018 Time Performed: 05:30:52 PTAGE: 68 years EKG: Atrial fibrillation with rapid ventricular response Poor R wave progression - probable norm al variant Lateral T wave changes are nonspecific Low QRS voltages in precordial leads Abnormal ECG PREVIOUS TRACING : 09/16/2018 17.54 Compared to previous tracing, SR no longer present DOCTOR: Nav Bartlett Interpretating Date/Time 09/18/2018 09:41:53
--- NOTE | 2018-09-18 10:40 | P.PNIM ---
Subjective Interval history: afebrile no complains of chest pain or hsortenss of breath yesterday0 went into a fib-started on BB- asymptomatic now on telemetry- sinus telemetry- reviewed overnight- in an out of a fib- paroxysmal;- asymptomatic Physical Exam Vital signs: Vital Signs 09/17/18 12:00 09/17/18 16:00 09/17/18 19:40 Temperature 98.4 F 98.2 F 98.3 F Pulse Rate 61 72 73 Respiratory Rate 18 18 16 Blood Pressure 123/90 128/69 124/58 L Pulse Oximetry 100 98 98 09/17/18 20:00 09/17/18 23:10 09/18/18 00:00 Temperature 98.3 F Pulse Rate 72 102 H 102 H Respiratory Rate 16 Blood Pressure 112/57 L Pulse Oximetry 95 09/18/18 03:15 09/18/18 04:00 09/18/18 08:00 Temperature 97.9 F 98 F Pulse Rate 96 H 100 H 88 Respiratory Rate 16 20 Blood Pressure 105/72 121/70 Pulse Oximetry 98 98 Intake & Output 09/17/18 09/18/18 09/18/18 18:59 06:59 18:59 Intake Total 3060 / 3060 1860 / 1860 Balance 3060 / 3060 1860 / 1860 Weight 104.3 kg Intake: IV 2100 / 2100 1620 / 1620 NS Inj 1,000 ML @ 30 mls/hr IV. 1999 / 1999 1000 / 1000 CONT .Q24H KITTY Rx#:[id number] Zosyn 3.375 GM Premix 3.375 gm 100 / 100 100 / 100 In 50 ml @ 100 mls/hr IV.SIG Q6H KITTY Rx#:[id number] Vancomycin Inj 2,000 MG In NS 520 / 520 Inj 500 ML @ 250 mls/hr IV.SIG Q24H KITTY Rx#:[id number] Oral 960 / 960 240 / 240 Other: # Voids 3 2 # Bowel Movements 2 Narrative: awake and alert no distresss anciteric neck supple lungs-clear regular rhythm now- on exam abdomen- soft, nontend extremity- gfoot dressing in place, no calf tenderness Results Labs CBC & Chem 7: 09/18/18 08:20 09/18/18 08:20 Labs: Microbiology 09/16/18 18:35 Tissue - Foot Gram Stain - Final 09/16/18 18:35 Tissue - Foot Wound Culture - Preliminary No growth in 48 hours 09/16/18 18:35 Wound - Toe Gram Stain - Final 09/16/18 18:35 Wound - Toe Wound Culture - Preliminary Proteus mirabilis Group D Enterococcus 09/14/18 22:05 Blood - Peripheral Aerobic Blood Culture - Preliminary No growth in 3 days 09/14/18 22:05 Blood - Peripheral Anaerobic Blood Culture - Preliminary No growth in 3 days 09/14/18 22:10 Blood - Peripheral Aerobic Blood Culture - Preliminary No growth in 3 days 09/14/18 22:10 Blood - Peripheral Anaerobic Blood Culture - Preliminary No growth in 3 days Assessment and Plan (1) Acute osteomyelitis of toe of left foot: Code(s): M86.172 - Other acute osteomyelitis, left ankle and foot Status: Acute Plan 68-year-old female with a history of diabetes mellitus, hypertension, hyperlipidemia and GERD. She was sent by her manager medical to the ED because of diabetic foot infection with suspected osteomyelitis involving the left great toe. Repeat x-ray shows acute to subacute fracture involving the proximal phalanx of the great toe. Foot MRI with bony edema in the mid and distal portions of the proximal phalanx of the great toe. Diabetic foot infection involving the left great toe S/P Left big toe amputation 09/16 - possible OM- -Culture from OR- Grp d enterocc=occus and Proteus OR report reviewed - some purulence , biopsy taken Cellulitis with ulceration on the plantar surface. with Subacute fracture on imaging study - - on Imaging study no signs of OM - patient does not recall any trauma -Continue IV vancomycin and Zosyn - ESR mildly elevated -Pain management with Lortab and IV morphine counseled regarding narcotics - ID ff - recommendaitons appreciated - ff biopsy report Mild anemia 2/2 hemodilution. No gross bleeding will monitor DM type 2- A1C- 5.9 - good readings - on metformin and glipizide at home - re started Metformin 500 mg daily Paroxsymal a fib - history of HTN, DM , age - score 3 - no history of CHF - episode pm yesterday 09/17- a fib - started on BB - overnight - in and out of a fib- now currently on sinus - asymptomatic - Echo ordered 09/17 - no previous history, electrolytes good - started on Lopressor 12.5 mg po bid - continue on Lisinorpil 40 mg daily - Cardiology consulted for recommendation - OAC- start Eliquis 5 mg bid for now - will defer to Cardiology for need of ischemic work up - TSh- slightly elevated- recheck in 8 weeks HTN- continue on Triny + Bb for a fib DVT prophylaxis with SCD and early ambulation Progress Note: Quality VTE Deep Vein Thrombosis/Pulmonary Embolism Present on Admission: No
--- NOTE | 2018-09-18 14:04 | MB ---
cc: Jermaine Branham MD DATE: 09/18/2018 REASON FOR CONSULTATION: New onset atrial fibrillation. HISTORY OF PRESENT ILLNESS: The patient is a very pleasant 68-year-old woman with no prior cardiac history, who has a history of diabetes, hypertension, hyperlipidemia, GERD and was sent to the hospital by her millwright helper due to a diabetic foot infection with possible osteomyelitis. X-ray showed acute to subacute fracture involving the proximal phalanx of the great toe. While receiving IV antibiotics, the patient went into a rapid atrial fibrillation for about 9 hours, but has since converted to sinus rhythm where she remains. She was asymptomatic during her bout of atrial fibrillation and she again denies any cardiac symptoms such as chest pain, shortness of breath, lightheadedness, dizziness, palpitations, syncope. PAST MEDICAL HISTORY: As above. CURRENT MEDICATIONS: 1. Eliquis 5 mg b.i.d. 2. Metformin. 3. Lopressor 12.5 mg b.i.d. 4. Vancomycin. 5. Zosyn. ALLERGIES: SULFA. PHYSICAL EXAMINATION: VITAL SIGNS: Afebrile, pulse 95, respiratory rate 20, BP 121/70, saturating 98 on room air. GENERAL: Pleasant woman in no distress. NECK: No JVD. LUNGS: Clear to auscultation bilaterally. CARDIOVASCULAR: Regular rate and rhythm. No significant murmurs appreciated. ABDOMEN: Benign. EXTREMITIES: No edema. LABORATORY DATA: White count 7.5, hematocrit 33.8, platelets 289. INR is 1.1. Sodium 143, potassium 3.8, chloride 110, bicarbonate 24.4, BUN 11, creatinine 1.02, glucose 104. EKG showed atrial fibrillation at a rate of [address] changes. Current telemetry shows sinus rhythm. IMPRESSION: New onset paroxysmal atrial fibrillation. The patient is now on Eliquis and currently in sinus rhythm. She has room for some additional rate control medication should she revert back to atrial fibrillation, so I will increase her metoprolol to 25 mg b.i.d. I will ensure she gets an echocardiogram. Otherwise, she is doing quite well and back in sinus rhythm, so I will sign off and be available as needed. I will ask her to see me in the office in a week or two for followup. Thank you again for the opportunity to provide this patient's care. MD Melyssa Arredondo , 11:30 AM , 11:37 AM
--- NOTE | 2018-09-18 14:22 | ECHRPT ---
Indication: afib and fluter CONCLUSIONS Normal left ventricular size. Wall thickness is normal. The left ventricular systolic function is normal with an estimated ejection fraction in the range of 55-60%. The left atrial size is mildly dilated. Mild thickening of the mitral valve leaflets. [id number] mitral valve regurgitation. The estimated pulmonary arterial pressure is 43.4 mmHg. BP: / HR: Rhythm: MEASUREMENTS (Male / Female) Normal Values Technical Quality:Technically difficult study 2D ECHO LV Diastolic Diameter PLAX 4.7 cm 4.2 - 5.9 / 3.9 - 5.3 cm LV Systolic Diameter PLAX 3.4 cm IVS Diastolic Thickness 1.1 cm 0.6 - 1.0 / 0.6 - 0.9 cm LVPW Diastolic Thickness 1.1 cm 0.6 - 1.0 / 0.6 - 0.9 cm LV Relative Wall Thickness 0.5 RV Internal Dim ED PLAX 2.8 cm LVOT Diameter 1.9 cm Aortic Root Diameter 2.2 cm LA Systolic Diameter LX 3.7 cm 3.0 - 4.0 / 2.7 - 3.8 cm M-MODE Aortic Root Diameter MM 3.5 cm LA Systolic Diameter MM 4.4 cm LA Ao Ratio MM 1.3 AV Cusp Separation MM 2.1 cm DOPPLER AV Peak Velocity 137.0 cm/s AV Peak Gradient 7.5 mmHg LVOT Peak Velocity 92.3 cm/s LVOT Peak Gradient 3.4 mmHg AV Area Cont Eq pk 1.9 cm Mitral E Point Velocity 96.7 cm/s Mitral A Point Velocity 91.3 cm/s Mitral E to A Ratio 1.1 LV E' Lateral Velocity 9.0 cm/s Mitral E to LV E' Lateral Ratio 10.8 LV E' Septal Velocity 7.4 cm/s Mitral E to LV E' Septal Ratio 13.0 TR Peak Velocity 289.0 cm/s TR Peak Gradient 33.4 mmHg Right Atrial Pressure 10.0 mmHg Pulmonary Artery Systolic Pressu 43.4 mmHg Right Ventricular Systolic Press 43.4 mmHg PV Peak Velocity 89.2 cm/s PV Peak Gradient 3.2 mmHg FINDINGS LEFT VENTRICLE Normal left ventricular size. Wall thickness is normal. The left ventricular systolic function is normal with an estimated ejection fraction in the range of 55-60%. RIGHT VENTRICLE Normal right ventricular size and systolic function. LEFT ATRIUM The left atrial size is mildly dilated. RIGHT ATRIUM The right atrial size is normal. ATRIAL SEPTUM Normal atrial septal thickness without atrial level shunting by limited color doppler interrogation. AORTA The aortic root and proximal ascending aorta are normal in size on limited imaging. MITRAL VALVE Mild thickening of the mitral valve leaflets. [id number] mitral valve regurgitation. Moderate mitral annular calcification. AORTIC VALVE Trileaflet aortic valve. No aortic valve stenosis or regurgitation. TRICUSPID VALVE The estimated pulmonary arterial pressure is 43.4 mmHg. PULMONARY VALVE No pulmonary valve regurgitation or stenosis. VESSELS The inferior vena cava is normal in size. PERICARDIUM No pericardial effusion. Jermaine Branham MD (Electronically Signed) Final Date:18 September 2018 14:21
[2018-09-18] MEDS: Ampicillin/Sulbactam Inj 3 GM in Sodium Chloride 0.9% Inj 100 ML IV.SIG SCH ×2 (17:52→23:19)
--- NOTE | 2018-09-18 18:03 | P.PNID ---
Subjective Remarks: Delayed entry. Patient seen around 3:30p. Patient is in bed and is in no acute distress. Reports to me that she fell on the way to the bathroom onto her butt earlier today. She states that she has no pain except for some pain in the buttock. She denies headache or neck pain. No fever. No chills. Wound culture has Proteus and group D enterococcus. This is a 68-year-old white female who has history of diabetes mellitus. The patient developed a wound at the left great toe, which she was treating herself at home. She developed redness and swelling in the left great toe on the top of the foot beyond the toes and swelling up to her ankle. She was evaluated by podiatry and sent to the emergency department for evaluation. She reports that the problem was ongoing for about 4 weeks. An x-ray was performed and she was told that she had osteomyelitis. She subsequently underwent MRI of the left foot and there was bony edema in the mid and distal portion of the proximal phalanx characteristic of a fracture. There was also mild edema within the proximal half of the distal phalanx of the great toe as well. The patient was evaluated by the heading and priming tool setter and a SPECT scan revealed fracture that was seen on the CT scan. There was also abnormal uptake which was felt likely to be due to fracture versus superimposed osteomyelitis. She underwent amputation of the left great toe and sample was sent for pathology. Past Medical History: PAST MEDICAL HISTORY: Diabetes mellitus, non-insulin dependent, hypertension, hyperlipidemia, acid reflux, history of cholecystectomy. Allergies/Adverse Reactions: Allergies Sulfa (Sulfonamide Antibiotics) Allergy (Intermediate, Verified 09/14/18 21:57) hives Objective Vital Signs 09/17/18 19:40 09/17/18 20:00 09/17/18 23:10 Temperature 98.3 F 98.3 F Pulse Rate 73 72 102 H Respiratory Rate 16 16 Blood Pressure 124/58 L 112/57 L Pulse Oximetry 98 95 09/18/18 00:00 09/18/18 03:15 09/18/18 04:00 Temperature 97.9 F Pulse Rate 102 H 96 H 100 H Respiratory Rate 16 Blood Pressure 105/72 Pulse Oximetry 98 09/18/18 08:00 09/18/18 12:00 09/18/18 14:00 Temperature 98 F 98 F 98.3 F Pulse Rate 95 H 71 72 Respiratory Rate 20 20 20 Blood Pressure 121/70 126/70 135/64 Pulse Oximetry 98 100 97 09/18/18 16:00 Temperature 97.8 F Pulse Rate 62 Respiratory Rate 20 Blood Pressure 116/63 Pulse Oximetry 97 Intake & Output 09/17/18 09/18/18 09/18/18 18:59 06:59 18:59 Intake Total 3060 / 3060 1860 / 1860 50 / 50 Balance 3060 / 3060 1860 / 1860 50 / 50 Weight 104.3 kg Intake: IV 2100 / 2100 1620 / 1620 50 / 50 NS Inj 1,000 ML @ 30 mls/hr IV. 1999 / 1999 1000 / 1000 CONT .Q24H [facility] Rx#:[id number] Zosyn 3.375 GM Premix 3.375 gm 100 / 100 100 / 100 50 / 50 In 50 ml @ 100 mls/hr IV.SIG Q6H [facility] Rx#:[id number] Vancomycin Inj 2,000 MG In NS 520 / 520 Inj 500 ML @ 250 mls/hr IV.SIG Q24H [facility] Rx#:[id number] Oral 960 / 960 240 / 240 Other: # Voids 3 2 # Bowel Movements 2 09/14/18 22:05 Blood - Peripheral Aerobic Blood Culture - Preliminary No growth in 4 days 09/14/18 22:05 Blood - Peripheral Anaerobic Blood Culture - Preliminary No growth in 4 days 09/14/18 22:10 Blood - Peripheral Aerobic Blood Culture - Preliminary No growth in 4 days 09/14/18 22:10 Blood - Peripheral Anaerobic Blood Culture - Preliminary No growth in 4 days 09/16/18 18:35 Tissue - Foot Gram Stain - Final 09/16/18 18:35 Tissue - Foot Wound Culture - Preliminary No growth in 48 hours 09/16/18 18:35 Wound - Toe Gram Stain - Final 09/16/18 18:35 Wound - Toe Wound Culture - Preliminary Proteus mirabilis Group D Enterococcus 09/16/18 18:35 Wound - Toe Fungal Smear - Pending 09/16/18 18:35 Wound - Toe Fungal Culture - Pending 09/16/18 18:35 Wound - Toe Acid Fast Bacilli Smear - Pending 09/16/18 18:35 Wound - Toe Mycobacterial Culture - Pending 09/16/18 18:35 Tissue - Foot Fungal Smear - Pending 09/16/18 18:35 Tissue - Foot Fungal Culture - Pending 09/16/18 18:35 Tissue - Foot Acid Fast Bacilli Smear - Pending 09/16/18 18:35 Tissue - Foot Mycobacterial Culture - Pending Lab - Hematology Results 09/18/18 08:20 WBC 7.5 RBC 3.81 L Hgb 11.1 L Hct 33.8 L MCV 88.7 MCH 29.1 MCHC 32.8 RDW 13.5 Plt Count 289 D MPV 8.9 Neut % (Auto) 67.0 Lymph % (Auto) 22.0 [place] % (Auto) 8.6 H Eos % (Auto) 1.5 Baso % (Auto) 0.9 Neut # (Auto) 5.1 Lymph # (Auto) 1.7 [place] # (Auto) 0.6 Eos # (Auto) 0.1 Baso # (Auto) 0.1 WBC Differential . Differential Comment Auto diff final Lab - Chemistry Results 09/16/18 09/16/18 09/17/18 18:58 20:45 06:20 Sodium Potassium Chloride Carbon Dioxide Anion Gap BUN Creatinine 0.79 Estimated GFR 72 L POC Glucose 81 147 H Random Glucose Calcium Magnesium TSH 09/17/18 09/17/18 09/17/18 08:26 12:51 17:13 Sodium Potassium Chloride Carbon Dioxide Anion Gap BUN Creatinine Estimated GFR POC Glucose 147 H 188 H 124 H Random Glucose Calcium Magnesium TSH 09/17/18 09/17/18 09/18/18 17:30 22:31 07:42 Sodium 141 Potassium 4.1 Chloride 108 H Carbon Dioxide 23.9 Anion Gap 9 BUN 11 Creatinine 1.03 H Estimated GFR 53 L POC Glucose 202 H 104 Random Glucose 137 H Calcium 8.2 L Magnesium TSH 09/18/18 09/18/18 09/18/18 08:20 12:11 17:13 Sodium 143 Potassium 3.8 Chloride 110 H Carbon Dioxide 24.4 Anion Gap 9 BUN 11 Creatinine 1.02 H Estimated GFR 54 L POC Glucose 132 H 111 H Random Glucose 90 Calcium 8.7 Magnesium 1.9 TSH 3.960 H Imaging: ITS Impressions Foot MRI 09/14/18 22:21 CONCLUSION: 1. Bony edema in the mid and distal portions of the proximal phalanx of the great toe characteristic of the fracture identified on plain film. 2. Mild edema within the proximal half of the distal phalanx of the great toe is probably reactive secondary to the comminuted fracture of the adjacent phalanx. Extremity Arterial Study 09/15/18 00:00 CONCLUSION: Elevated ankle-brachial index on the right. This may reflect densely calcified vessels. CT angiography of the abdominal aorta and lower extremities is recommended for further evaluation if clinically indicated. The toe brachial indices are also nondiagnostic Foot X-Ray 09/16/18 00:00 CONCLUSION: Post amputation, otherwise not changed. SPECT Scan-Bone NM 09/16/18 00:00 CONCLUSION: 1. The patient has fractures seen on CT portion of the exam involving distal portion of the first proximal phalanx extending intra-articularly with abnormal uptake. The uptake could be due to fracture, however superimposed osteomyelitis is not excluded since the patient's ulcers in this location. Physical Exam: PHYSICAL EXAMINATION: GENERAL: Patient is in no acute distress. Awake and alert. Oriented x3. HEENT: Head is atraumatic. Extraocular movements are grossly intact. Pupils reactive to light, without icterus. Oropharynx: Moist mucosa. The patient is edentulous. NECK: Supple without adenopathy. LUNGS: Clear breath sounds bilaterally. HEART: Regular S1 and S2, without murmurs. ABDOMEN: Bowel sounds present. Soft, nontender. EXTREMITIES: The left foot is wrapped in a surgical dressing and is status post amputation of the left great toe. There is visible swelling, sensation is intact at the remaining toes. SKIN: No diffuse rash. NEUROLOGIC: No gross focal finding. PSYCHIATRIC: Calm and cooperative. Assessment and Plan - Plan IMPRESSION: Diabetic foot infection/osteomyelitis involving the left great toe. The patient is status post amputation of the left great toe. Wound culture pending. Pathology evaluation pending. RECOMMENDATIONS: 1. Stop vancomycin. 2. Stop piperacillin/tazobactam. 3. Begin Unasyn. Anticipate giving couple days of IV antibiotics and then can transition to p.o. depending on the pathology findings and if additional surgery is needed. 4. Monitor pathology sampling.
[2018-09-19] MEDS: Ampicillin/Sulbactam Inj 3 GM in Sodium Chloride 0.9% Inj 100 ML IV.SIG SCH ×4 (04:06→22:01)
[2018-09-19] MEDS: Insulin NovoLOG Aspart Correctional Sugar Inj SQ SCH ×4 (08:07→20:54)
[2018-09-19] MEDS: Gabapentin 300 MG Capsule PO SCH ×3 (09:14→17:44)
[2018-09-19] MEDS: Metoprolol Tartrate 25 MG Tablet PO SCH ×2 (09:14→21:57)
[2018-09-19] MEDS: Senna/Docusate Sodium 8.6/50 MG Tablet PO SCH ×2 (09:14→21:58)
[2018-09-19] MEDS: Lisinopril 20 MG Tablet PO SCH (09:15)
--- NOTE | 2018-09-19 11:16 | P.PNIM ---
Subjective Interval history: alert afebrile no complains telemetry- in SR no diarreha no pain Physical Exam Vital signs: Vital Signs 09/18/18 12:00 09/18/18 14:00 09/18/18 15:56 Temperature 98 F 98.3 F Pulse Rate 71 72 Respiratory Rate 20 20 Blood Pressure 126/70 135/64 127/72 Pulse Oximetry 100 97 95 09/18/18 16:00 09/18/18 19:50 09/18/18 20:00 Temperature 97.8 F 98.2 F Pulse Rate 64 70 66 Respiratory Rate 20 18 Blood Pressure 116/63 146/67 H Pulse Oximetry 97 100 09/18/18 23:50 09/19/18 00:00 09/19/18 04:00 Temperature 98.4 F Pulse Rate 60 60 58 L Respiratory Rate 18 Blood Pressure 142/67 H Pulse Oximetry 96 09/19/18 04:10 09/19/18 08:00 Temperature 98.2 F 98 F Pulse Rate 64 63 Respiratory Rate 18 18 Blood Pressure 141/65 H 150/79 H Pulse Oximetry 96 99 Intake & Output 09/18/18 09/19/18 09/19/18 18:59 06:59 18:59 Intake Total 630 / 630 1060 / 1060 Balance 630 / 630 1060 / 1060 Weight 104.3 kg Intake: IV 150 / 150 700 / 700 Unasyn Inj 3 GM In NS Inj 100 100 / 100 200 / 200 ML @ 200 mls/hr IV.SIG Q6H [facility] Rx#:[id number] Zosyn 3.375 GM Premix 3.375 gm 50 / 50 In 50 ml @ 100 mls/hr IV.SIG Q6H [facility] Rx#:[id number] Oral 480 / 480 360 / 360 Other: Post Void Residual 1,600 # Voids 4 Date of Last Bowel Movement 09/19/18 # Bowel Movements 3 Narrative: awake and alert no distress anicteri lungs-clear regular rhythm abdomensoft, nontender extrmeites no edmea, no calf tender left foot- dressing in place Results Labs CBC & Chem 7: 09/18/18 08:20 09/18/18 08:20 Labs: Microbiology 09/14/18 22:05 Blood - Peripheral Aerobic Blood Culture - Final No growth in 5 days 09/14/18 22:05 Blood - Peripheral Anaerobic Blood Culture - Final No growth in 5 days 09/14/18 22:10 Blood - Peripheral Aerobic Blood Culture - Final No growth in 5 days 09/14/18 22:10 Blood - Peripheral Anaerobic Blood Culture - Final No growth in 5 days 09/16/18 18:35 Tissue - Foot Gram Stain - Final 09/16/18 18:35 Tissue - Foot Wound Culture - Final No growth in 72 hours (aerobically and anaerobically ) 09/16/18 18:35 Wound - Toe Gram Stain - Final 09/16/18 18:35 Wound - Toe Wound Culture - Final Proteus mirabilis Enterococcus faecalis Assessment and Plan (1) Acute osteomyelitis of toe of left foot: Code(s): M86.172 - Other acute osteomyelitis, left ankle and foot Status: Acute Plan 68-year-old female with a history of diabetes mellitus, hypertension, hyperlipidemia and GERD. She was sent by her cloth doffer to the ED because of diabetic foot infection with suspected osteomyelitis involving the left great toe. Repeat x-ray shows acute to subacute fracture involving the proximal phalanx of the great toe. Foot MRI with bony edema in the mid and distal portions of the proximal phalanx of the great toe. Diabetic foot infection involving the left great toe S/P Left big toe amputation 09/16 - possible OM- -Culture from OR- Grp d enterocc=occus and Proteus OR report reviewed - some purulence , biopsy taken Cellulitis with ulceration on the plantar surface. with Subacute fracture on imaging study - - on Imaging study no signs of OM - patient does not recall any trauma - ID ff- now on IV Unasyn -Pain management with Lortab and IV morphine counseled regarding narcotics - ff biopsy report Mild anemia 2/2 hemodilution. No gross bleeding will monitor DM type 2- A1C- 5.9 - good readings - on metformin and glipizide at home - currently on Metformin 500 mg daily Paroxsymal a fib- now in SR history of HTN, DM , age - score 3 - no history of CHF - episode pm yesterday 09/17- a fib - started on BB - overnight - in and out of a fib- now currently on sinus - Echo unremarkable - started on Lopressor 12.5 mg po bid - continue on Lisinorpil 40 mg daily - Cardiology ff - OAC- started on Eliquis 5 mg bid - will defer to Cardiology for need of ischemic work up - TSh- slightly elevated- recheck in 8 weeks HTN- continue on Triny + Bb for a fib DVT prophylaxis with SCD and early ambulation Progress Note: Quality VTE Deep Vein Thrombosis/Pulmonary Embolism Present on Admission: No
--- NOTE | 2018-09-19 18:00 | P.PNPOD ---
Physical Exam Vital signs: Vital Signs 09/18/18 19:50 09/18/18 20:00 09/18/18 23:50 Temperature 98.2 F 98.4 F Pulse Rate 70 66 60 Respiratory Rate 18 18 Blood Pressure 146/67 H 142/67 H Pulse Oximetry 100 96 09/19/18 00:00 09/19/18 04:00 09/19/18 04:10 Temperature 98.2 F Pulse Rate 60 58 L 64 Respiratory Rate 18 Blood Pressure 141/65 H Pulse Oximetry 96 09/19/18 08:00 09/19/18 12:00 09/19/18 16:00 Temperature 98 F 97.9 F 98.3 F Pulse Rate 63 60 61 Respiratory Rate 18 18 18 Blood Pressure 150/79 H 148/90 H 142/63 H Pulse Oximetry 99 99 97 Intake & Output 09/18/18 09/19/18 09/19/18 18:59 06:59 18:59 Intake Total 630 / 630 1060 / 1060 100 / 100 Balance 630 / 630 1060 / 1060 100 / 100 Weight 104.3 kg Intake: IV 150 / 150 700 / 700 100 / 100 Unasyn Inj 3 GM In NS Inj 100 100 / 100 200 / 200 100 / 100 ML @ 200 mls/hr IV.SIG Q6H [facility] Rx#:[id number] Zosyn 3.375 GM Premix 3.375 gm 50 / 50 In 50 ml @ 100 mls/hr IV.SIG Q6H [facility] Rx#:[id number] Oral 480 / 480 360 / 360 Other: Post Void Residual 1,600 # Voids 4 Date of Last Bowel Movement 09/19/18 # Bowel Movements 3 Narrative: incision well approximated with nylon. no drainage or s/o infection Medications and Allergies Active Medications: Active Medications Acetaminophen (Tylenol) 650 mg PO Q4H PRN PRN Reason: Temp > 100.4 Last Admin: 09/15/18 08:38 Dose: 650 mg Acetaminophen (Tylenol) 650 mg PO Q6HR PRN PRN Reason: PAIN SCALE 1 TO 2 Hydrocodone Bitart/Acetaminophen ([place] 5/325) 1 tab PO Q4H PRN PRN Reason: PAIN SCALE 3 TO 5 Last Admin: 09/18/18 14:02 Dose: 1 tab Hydrocodone Bitart/Acetaminophen ([place] 7.5/325) 1 tab PO Q4H PRN PRN Reason: PAIN SCALE 6 TO 10 Al Hydroxide/Mg Hydroxide (Milk Of Magnesia Liq) 30 ml PO Q12H PRN PRN Reason: Mild Constipation Apixaban (Eliquis) 5 mg PO BID [facility] Last Admin: 09/19/18 09:12 Dose: 5 mg Bisacodyl (Dulcolax Supp) 10 mg RECTAL DAILY PRN PRN Reason: SEVERE CONSITIPATION Dextrose (D50w Vial) 50 ml IV.PUSH UNSCH PRN PRN Reason: PER HYPOGLYCEMIA PROTOCOL Last Admin: 09/16/18 17:05 Dose: 50 ml Gabapentin (Neurontin) 300 mg PO TID [facility] Last Admin: 09/19/18 17:44 Dose: 300 mg Glucagon (Glucagon Inj) 1 mg OTHER PRN PRN PRN Reason: for Hypoglycemia Protocol Ampicillin Sodium/Sulbactam (Sodium 3 gm/ Sodium Chloride) 100 mls @ 200 mls/ hr IV.SIG Q6H [facility] Last Admin: 09/19/18 17:43 Dose: 100 mls/hr Insulin Aspart (Novolog Insulin Correctional Sugar Inj) 0 unit SQ ACHS [facility]; Protocol Last Admin: 09/19/18 17:42 Dose: Not Given Lactulose (Lactulose Liq) 30 ml PO DAILY PRN PRN Reason: SEVERE CONSITIPATION Lisinopril (Prinivil) 40 mg PO DAILY [facility] Last Admin: 09/19/18 09:15 Dose: 40 mg Metformin HCl (Glucophage) 500 mg PO DAILY [facility] Last Admin: 09/19/18 09:14 Dose: 500 mg Metoprolol Tartrate (Lopressor) 25 mg PO BID [facility] Last Admin: 09/19/18 09:14 Dose: 25 mg Miscellaneous (Pill Splitter) 1 each OTHER UNSCH PRN PRN Reason: PILL SPLITTER Miscellaneous Information ([facility] Ordered Lab Info) 1 each OTHER ONCE ONE Stop: 09/21/18 00:46 Morphine Sulfate (Morphine Inj) 2 mg IV.PUSH Q4H PRN PRN Reason: BREAKTHROUGH PAIN Naloxone HCl (Narcan Inj) 0.4 mg IV.PUSH UNSCH PRN PRN Reason: SEE LABEL COMMENTS Ondansetron HCl (Zofran Inj) 4 mg IV.PUSH Q6H PRN PRN Reason: NAUSEA OR VOMITING Pantoprazole Sodium (Protonix) 40 mg PO DAILY [facility] Last Admin: 09/19/18 09:15 Dose: 40 mg Senna/Docusate Sodium (Yadira-Colace) 1 tab PO BID [facility] Last Admin: 09/19/18 09:14 Dose: Not Given Sennosides (Senokot) 17.2 mg PO Q12H PRN PRN Reason: Moderate Constipation Sodium Chloride (Ns Flush) 2 ml IV.FLUSH BID [facility] Last Admin: 09/19/18 09:14 Dose: Not Given Sodium Chloride (Ns Flush) 2 ml IV.FLUSH PRN PRN PRN Reason: FLUSH AFTER USING IV ACCESS Allergies Allergy/AdvReac Type Severity Reaction Status Date / Time Sulfa (Sulfonamide Allergy Intermediate hives Verified 09/14/18 21:57 Antibiotics) Home Medications Medication Instructions Recorded Confirmed Type famotidine 20 ng PO BID 09/14/18 09/14/18 History gabapentin 300 mg PO TID 09/14/18 09/14/18 History glipizide 2.5 mg PO DAILY 09/14/18 09/14/18 History lisinopril 40 mg PO DAILY 09/14/18 09/14/18 History metformin 500 mg PO DAILY 09/14/18 09/14/18 History pantoprazole 40 mg PO DAILY 09/14/18 09/14/18 History Results - Labs CBC & Chem 7: 09/18/18 08:20 09/18/18 08:20 Laboratory Results - last 24 hr 09/18/18 09/19/18 09/19/18 20:34 07:41 12:26 POC Glucose 139 H 103 126 H 09/19/18 17:18 POC Glucose 103 Microbiology 09/16/18 18:35 Tissue - Foot Acid Fast Bacilli Smear - Final No acid fast bacilli seen 09/16/18 18:35 Wound - Toe Acid Fast Bacilli Smear - Final No acid fast bacilli seen 09/14/18 22:05 Blood - Peripheral Aerobic Blood Culture - Final No growth in 5 days 09/14/18 22:05 Blood - Peripheral Anaerobic Blood Culture - Final No growth in 5 days 09/14/18 22:10 Blood - Peripheral Aerobic Blood Culture - Final No growth in 5 days 09/14/18 22:10 Blood - Peripheral Anaerobic Blood Culture - Final No growth in 5 days 09/16/18 18:35 Tissue - Foot Gram Stain - Final 09/16/18 18:35 Tissue - Foot Wound Culture - Final No growth in 72 hours (aerobically and anaerobically ) 09/16/18 18:35 Wound - Toe Gram Stain - Final 09/16/18 18:35 Wound - Toe Wound Culture - Final Proteus mirabilis Enterococcus faecalis Assessment and Plan - Assessment (1) Acute osteomyelitis of toe of left foot Code(s): M86.172 - Other acute osteomyelitis, left ankle and foot Status: Acute - Plan s/p Amputation left hallux. Pathology pending Culture = proteus/enterococcus from toe, which was removed Culture from residual foot with no growth Dressing clean, dry. Keep intact. Changed bandage today. Incision line well approximated. No erythema, NO drainage. No sign of infection. I am ok with discharge when pathology is back, which will likely take a few more days. Continue IV antibiotics in meantime. Ok with discharge home on oral antibiotic course if bone biopsy negative
[2018-09-20] MEDS: Ampicillin/Sulbactam Inj 3 GM in Sodium Chloride 0.9% Inj 100 ML IV.SIG SCH ×3 (05:07→16:10)
[2018-09-20] MEDS: Gabapentin 300 MG Capsule PO SCH ×3 (08:19→16:59)
[2018-09-20] MEDS: Lisinopril 20 MG Tablet PO SCH (08:19)
[2018-09-20] MEDS: Insulin NovoLOG Aspart Correctional Sugar Inj SQ SCH ×3 (08:19→16:15)
[2018-09-20] MEDS: Senna/Docusate Sodium 8.6/50 MG Tablet PO SCH (08:20)
[2018-09-20] MEDS: Metoprolol Tartrate 25 MG Tablet PO SCH (08:20)
--- NOTE | 2018-09-20 12:18 | P.DCO ---
Diagnosis (1) Acute osteomyelitis of toe of left foot: Status: Acute Physical Therapy Order: Evaluate and treat, Improve ambulation and Strength and gait training Case Management Consult Case Management Consult-Home Health: Yes I have seen patient Lisy Sultana on 09/20/18. My clinical findings support the need for the requested home health care services because: Limited mobility due to disease progression I certify that my clinical findings support that this patient is homebound because: Post-op weakness and Unsafe to leave home unassisted
--- NOTE | 2018-09-20 13:54 | P.PNID ---
Subjective Remarks: Patient feels okay. Ambulated with physical therapy. No fever or chills or nausea or vomiting. Talk to pathology. The margins of the surgical specimen and negative for osteomyelitis. Patient is post amputation of the left great toe. Wound culture has Proteus and group D enterococcus. This is a 68-year-old white female who has history of diabetes mellitus. The patient developed a wound at the left great toe, which she was treating herself at home. She developed redness and swelling in the left great toe on the top of the foot beyond the toes and swelling up to her ankle. She was evaluated by podiatry and sent to the emergency department for evaluation. She reports that the problem was ongoing for about 4 weeks. An x-ray was performed and she was told that she had osteomyelitis. She subsequently underwent MRI of the left foot and there was bony edema in the mid and distal portion of the proximal phalanx characteristic of a fracture. There was also mild edema within the proximal half of the distal phalanx of the great toe as well. The patient was evaluated by the senior assistant manager and a SPECT scan revealed fracture that was seen on the CT scan. There was also abnormal uptake which was felt likely to be due to fracture versus superimposed osteomyelitis. She underwent amputation of the left great toe and sample was sent for pathology. Past Medical History: PAST MEDICAL HISTORY: Diabetes mellitus, non-insulin dependent, hypertension, hyperlipidemia, acid reflux, history of cholecystectomy. Allergies/Adverse Reactions: Allergies Sulfa (Sulfonamide Antibiotics) Allergy (Intermediate, Verified 09/14/18 21:57) hives Objective Vital Signs 09/19/18 16:00 09/19/18 19:58 09/19/18 20:00 Temperature 98.3 F 98.2 F Pulse Rate 61 69 67 Respiratory Rate 18 17 Blood Pressure 142/63 H 145/67 H Pulse Oximetry 97 99 09/20/18 00:00 09/20/18 04:00 09/20/18 04:02 Temperature 98.1 F 98.2 F Pulse Rate 67 72 68 Respiratory Rate 17 18 Blood Pressure 129/63 129/60 Pulse Oximetry 93 L 96 09/20/18 08:00 09/20/18 12:00 Temperature 98.5 F 98.4 F Pulse Rate 63 62 Respiratory Rate 17 15 Blood Pressure 118/57 L 124/61 Pulse Oximetry 97 98 Intake & Output 09/19/18 09/20/18 09/20/18 18:59 06:59 18:59 Intake Total 920 / 920 700 / 700 110 / 110 Output Total 1400 / 1400 Balance 920 / 920 -700 / -700 110 / 110 Weight 104.3 kg Intake: IV 200 / 200 220 / 220 110 / 110 Unasyn Inj 3 GM In NS Inj 100 200 / 200 220 / 220 110 / 110 ML @ 200 mls/hr IV.SIG Q6H [facility] Rx#:[id number] Oral 720 / 720 480 / 480 Output: Urine 1400 / 1400 Other: # Voids 4 3 Date of Last Bowel Movement 09/19/18 09/19/18 # Bowel Movements 2 09/16/18 18:35 Tissue - Foot Acid Fast Bacilli Smear - Final No acid fast bacilli seen 09/16/18 18:35 Tissue - Foot Mycobacterial Culture - Pending 09/16/18 18:35 Wound - Toe Acid Fast Bacilli Smear - Final No acid fast bacilli seen 09/16/18 18:35 Wound - Toe Mycobacterial Culture - Pending 09/14/18 22:05 Blood - Peripheral Aerobic Blood Culture - Final No growth in 5 days 09/14/18 22:05 Blood - Peripheral Anaerobic Blood Culture - Final No growth in 5 days 09/14/18 22:10 Blood - Peripheral Aerobic Blood Culture - Final No growth in 5 days 09/14/18 22:10 Blood - Peripheral Anaerobic Blood Culture - Final No growth in 5 days 09/16/18 18:35 Tissue - Foot Gram Stain - Final 09/16/18 18:35 Tissue - Foot Wound Culture - Final No growth in 72 hours (aerobically and anaerobically ) 09/16/18 18:35 Wound - Toe Gram Stain - Final 09/16/18 18:35 Wound - Toe Wound Culture - Final Proteus mirabilis Enterococcus faecalis 09/16/18 18:35 Wound - Toe Fungal Smear - Pending 09/16/18 18:35 Wound - Toe Fungal Culture - Pending Lab - Chemistry Results 09/15/18 09/18/18 09/18/18 13:42 17:13 20:34 POC Glucose 68 111 H 139 H 09/19/18 09/19/18 09/19/18 07:41 12:26 17:18 POC Glucose 103 126 H 103 09/19/18 09/20/18 09/20/18 20:26 08:19 12:07 POC Glucose 127 H 127 H 117 H Imaging: ITS Impressions Foot MRI 09/14/18 22:21 CONCLUSION: 1. Bony edema in the mid and distal portions of the proximal phalanx of the great toe characteristic of the fracture identified on plain film. 2. Mild edema within the proximal half of the distal phalanx of the great toe is probably reactive secondary to the comminuted fracture of the adjacent phalanx. Extremity Arterial Study 09/15/18 00:00 CONCLUSION: Elevated ankle-brachial index on the right. This may reflect densely calcified vessels. CT angiography of the abdominal aorta and lower extremities is recommended for further evaluation if clinically indicated. The toe brachial indices are also nondiagnostic Foot X-Ray 09/16/18 00:00 CONCLUSION: Post amputation, otherwise not changed. SPECT Scan-Bone NM 09/16/18 00:00 CONCLUSION: 1. The patient has fractures seen on CT portion of the exam involving distal portion of the first proximal phalanx extending intra-articularly with abnormal uptake. The uptake could be due to fracture, however superimposed osteomyelitis is not excluded since the patient's ulcers in this location. Physical Exam: PHYSICAL EXAMINATION: GENERAL: Patient is in no acute distress. Awake and alert. Oriented x3. HEENT: Head is atraumatic. Extraocular movements are grossly intact. Pupils reactive to light, without icterus. Oropharynx: Moist mucosa. The patient is edentulous. LUNGS: Clear breath sounds. HEART: Regular S1 and S2, without murmurs. EXTREMITIES: The left foot is wrapped in a surgical dressing and is status post amputation of the left great toe. Mild swelling. No drainage. SKIN: No diffuse rash. NEUROLOGIC: No gross focal finding. PSYCHIATRIC: Calm and cooperative. Assessment and Plan - Plan IMPRESSION: Diabetic foot infection/osteomyelitis involving the left great toe. Proteus and Enterococcus faecalis. The patient is status post amputation of the left great toe. Pathology margins negative for osteomyelitis. (Book to pathology about the specimen). RECOMMENDATIONS: Okay to stop Unasyn and discharge with p.o. amoxicillin 250 mg p.o. 3 times daily for 3 days.
--- NOTE | 2018-09-20 14:40 | P.DS ---
DS: Providers Date of admission: 09/14/18 22:57 Primary care physician: UNKNOWN Consults: 09/14/18 22:45 Consult to Podiatry Routine Consulting Provider: Guille Gautam Reason for Consultation: OM left great toe Notified:: Service Spoke with:: Rei Date Notified:: 09/14/18 Time Notified:: 23:05 Ordering Provider: SEB 09/15/18 00:22 HUB Only Consult Order Routine Consulting Provider: Laine Jang 09/17/18 10:28 Consult to Infectious Diseases Routine Consulting Provider: Tera Fitzgerald Reason for Consultation: diabetic foot infection- s/p left hallus amputation - biopsy pendingin possible OM Notified:: Service Spoke with:: shena Date Notified:: 09/17/18 Time Notified:: 10:32 Ordering Provider: ANN MARIE 09/18/18 05:06 Consult to Cardiology Routine Consulting Provider: Jermaine Branham Does the patient have a Teletype Telegrapher who follows them?: No Preferred Senior Master Scheduler:: Turbine Engineer Physician Reason for Consultation: new onset atrial fibrillation Notified:: Service Spoke with:: vannesa Date Notified:: 09/18/18 Time Notified:: 06:14 Ordering Provider: JEIMY 09/20/18 10:54 HUB Only Consult Order Routine Consulting Provider: Cindy Lopez Brief History from admission: This is a 68-year-old female with a history of diabetes mellitus, hypertension, hyperlipidemia and GERD. She was sent by her traffic control technician to the ED because of diabetic foot infection with suspected osteomyelitis. Patient is being followed by Dr. Zamarripa. States she has improving right foot sores over metatarsal head and plantar surface of the great toe. She also has left great toe swelling and pain for 2 months. It has an ulcer on the plantar surface with drainage for the past 6 weeks no fever and chills. Patient reports of constant stinging sensation. She had outpatient x- ray yesterday which showed osteomyelitis. In the ED, repeat x-ray shows acute to subacute fracture involving the proximal phalanx of the great toe. Foot MRI with bony edema in the mid and distal portions of the proximal phalanx of the great toe. She has been started on IV vancomycin and Zosyn. All other systems reviewed negative DS: Diagnosis Discharge Diagnosis (1) Acute osteomyelitis of toe of left foot: Status: Acute DS: Summary 68-year-old female with a history of diabetes mellitus, hypertension, hyperlipidemia and GERD. She was sent by her traffic control technician to the ED because of diabetic foot infection with suspected osteomyelitis involving the left great toe. Repeat x-ray shows acute to subacute fracture involving the proximal phalanx of the great toe. Foot MRI with bony edema in the mid and distal portions of the proximal phalanx of the great toe. Diabetic foot infection involving the left great toe S/P Left big toe amputation 09/16 - possible OM- -Culture from OR- Grp d enterococcus and Proteus OR report reviewed - some purulence , biopsy with clear margins Cellulitis with ulceration on the plantar surface. with Subacute fracture on imaging study - - on Imaging study no signs of OM - patient does not recall any trauma - ID ff- now on IV Unasyn switched to amoxicillin 250 mg 3 times a day for 3 more day -Pain management with Lortab and IV morphine counseled regarding narcotics. [employer] Prescription Drug Monitoring Database has been queried and verified prior to prescribing the controlled subsection. Patient is having significant pain caused by [left great toe amputate] which will last more than 3 days. Trial of alternative treatment options other than prescribed opioids has not helped. I believe that it is medically necessary to treat the patients pain because it is affecting patients ability to [do ADL]. Mild anemia 2/2 hemodilution. No gross bleeding will monitor DM type 2- A1C- 5.9 - good readings - on metformin and glipizide at home - currently on Metformin 500 mg daily Paroxsymal a fib- now in SR history of HTN, DM , age - score 3 - no history of CHF - Continue BB - Echo unremarkable - continue on Lisinorpil 40 mg daily - Cardiology ff - OAC- started on Eliquis 5 mg bid - will defer to Cardiology for need of ischemic work up - TSh- slightly elevated- recheck in 8 weeks HTN- continue on Triny + Bb for a fib DVT prophylaxis with SCD and early ambulation. Patient also on Dev Time Spent with Patient Total time spent providing and/or coordinating discharge services: Greater than 30 minutes Quality: VTE Deep Vein Thrombosis/Pulmonary Embolism Present on Admission: No Exam Narrative Exam Narrative: awake and alert no distress anicteri lungs-clear regular rhythm abdomen soft, nontender Extremities no, no calf tender left foot- dressing in place Alert and oriented Results Procedures completed during hospitalization: Amputation of the left great toe Pending studies at discharge: Pending at discharge 09/16/18 09:06 Surgical [PTH] Routine Labs on day of discharge: Labs from last 24 hours 09/20/18 09/20/18 09/19/18 12:07 08:19 20:26 POC Glucose 117 H 127 H 127 H 09/19/18 09/15/18 17:18 13:42 POC Glucose 103 68 Impressions ITS Impressions Foot MRI 09/14/18 22:21 CONCLUSION: 1. Bony edema in the mid and distal portions of the proximal phalanx of the great toe characteristic of the fracture identified on plain film. 2. Mild edema within the proximal half of the distal phalanx of the great toe is probably reactive secondary to the comminuted fracture of the adjacent phalanx. Extremity Arterial Study 09/15/18 00:00 CONCLUSION: Elevated ankle-brachial index on the right. This may reflect densely calcified vessels. CT angiography of the abdominal aorta and lower extremities is recommended for further evaluation if clinically indicated. The toe brachial indices are also nondiagnostic Foot X-Ray 09/16/18 00:00 CONCLUSION: Post amputation, otherwise not changed. SPECT Scan-Bone NM 09/16/18 00:00 CONCLUSION: 1. The patient has fractures seen on CT portion of the exam involving distal portion of the first proximal phalanx extending intra-articularly with abnormal uptake. The uptake could be due to fracture, however superimposed osteomyelitis is not excluded since the patient's ulcers in this location. Discharge Plan Discharge Disposition Patient Disposition: W/Home Health Service Discharge Condition Condition: Stable Discharge Order Discharge Orders: Discharge Order (Routine); Ordered 09/20/18 Ordered By: Jonatan Bonilla Physicians Team ED Provider: Sarah Luna Primary Care Provider: UNKNOWN, Attending Provider: Jonatan Bonilla Other Providers: Guille Gautam ; Laine Jang ; Tera Fitzgerald ; Jermaine Branham ; [facility] Rxs /Orders / Referrals /Forms Prescriptions: New hydrocodone-acetaminophen 7.5-325 mg Tablet 1 tab PO Q6H PRN (Reason: Acute Pain) Qty: 12 RF: 0 amoxicillin 250 mg capsule 250 mg PO TID Qty: 9 RF: 0 apixaban [Eliquis] 5 mg Tablet 5 mg PO BID Qty: 60 RF: 0 metoprolol tartrate 25 mg Tablet 25 mg PO BID Qty: 60 RF: 0 Continue metformin 500 mg Tablet 500 mg PO DAILY RF: 0 glipizide 2.5 mg Tablet Extended Release 24hr 2.5 mg PO DAILY RF: 0 pantoprazole 40 mg Tablet,Delayed Release (Dr/Ec) 40 mg PO DAILY RF: 0 gabapentin 300 mg Capsule 300 mg PO TID RF: 0 lisinopril 40 mg Tablet 40 mg PO DAILY RF: 0 Discontinued famotidine 20 mg Tablet 20 ng PO BID RF: 0 Ambulatory Orders / Order Sets / DME: Walker With Front Wheels (1 each) (Routine) Location: Determined by Patient Ordered By: Jonatan Bonilla Referrals: Guille Gautam DPM [Physician] - See Instructions (Follow-up in 1-2 weeks) Jermaine Branham MD [Physician] - See Instructions (Follow-up in 1-2 weeks) UNKNOWN, [Primary Care Provider] - See Instructions (Follow-up PCP in 3 days) Discharge Instructions Patient Printed Instructions: Toe Amputation (DC) Post Discharge Care Plan Care Plan Goals: Your Health Problems: Goals to Promote Your Health: * To prevent worsening of your condition * To maintain your health at the optimal level Directions to Meet Your Goals: * Take your medications as prescribed * Follow your dietary instruction * Follow activity as directed * Keep your appointments as scheduled * Take your immunizations and boosters as scheduled * If your symptoms worsen call your PCP * If no PCP go to Urgent Care or Emergency Room Smoking is dangerous to your health. Avoid second hand smoke. You may reach the 24-hour crisis hotline for domestic abuse at . Discharge Interventions Interventions: Discharge Planning - Case Management Last Done: 09/20/18 10:54 Status ED Status: Left Department
--- NOTE | 2018-09-20 16:42 | P.PNPOD ---
Physical Exam Vital signs: Vital Signs 09/19/18 19:58 09/19/18 20:00 09/20/18 00:00 Temperature 98.2 F 98.1 F Pulse Rate 69 67 67 Respiratory Rate 17 17 Blood Pressure 145/67 H 129/63 Pulse Oximetry 99 93 L 09/20/18 04:00 09/20/18 04:02 09/20/18 08:00 Temperature 98.2 F 98.5 F Pulse Rate 72 68 63 Respiratory Rate 18 17 Blood Pressure 129/60 118/57 L Pulse Oximetry 96 97 09/20/18 12:00 Temperature 98.4 F Pulse Rate 62 Respiratory Rate 15 Blood Pressure 124/61 Pulse Oximetry 98 Intake & Output 09/19/18 09/20/18 09/20/18 18:59 06:59 18:59 Intake Total 920 / 920 700 / 700 110 / 110 Output Total 1400 / 1400 Balance 920 / 920 -700 / -700 110 / 110 Weight 104.3 kg Intake: IV 200 / 200 220 / 220 110 / 110 Unasyn Inj 3 GM In NS Inj 100 200 / 200 220 / 220 110 / 110 ML @ 200 mls/hr IV.SIG Q6H [facility] Rx#:[id number] Oral 720 / 720 480 / 480 Output: Urine 1400 / 1400 Other: # Voids 4 3 Date of Last Bowel Movement 09/19/18 09/19/18 # Bowel Movements 2 Medications and Allergies Active Medications: Active Medications Acetaminophen (Tylenol) 650 mg PO Q4H PRN PRN Reason: Temp > 100.4 Last Admin: 09/15/18 08:38 Dose: 650 mg Acetaminophen (Tylenol) 650 mg PO Q6HR PRN PRN Reason: PAIN SCALE 1 TO 2 Hydrocodone Bitart/Acetaminophen ([place] 5/325) 1 tab PO Q4H PRN PRN Reason: PAIN SCALE 3 TO 5 Last Admin: 09/18/18 14:02 Dose: 1 tab Hydrocodone Bitart/Acetaminophen ([place] 7.5/325) 1 tab PO Q4H PRN PRN Reason: PAIN SCALE 6 TO 10 Last Admin: 09/19/18 22:01 Dose: 1 tab Al Hydroxide/Mg Hydroxide (Milk Of Magnesia Liq) 30 ml PO Q12H PRN PRN Reason: Mild Constipation Apixaban (Eliquis) 5 mg PO BID [facility] Last Admin: 09/20/18 08:20 Dose: 5 mg Bisacodyl (Dulcolax Supp) 10 mg RECTAL DAILY PRN PRN Reason: SEVERE CONSITIPATION Dextrose (D50w Vial) 50 ml IV.PUSH UNSCH PRN PRN Reason: PER HYPOGLYCEMIA PROTOCOL Last Admin: 09/16/18 17:05 Dose: 50 ml Gabapentin (Neurontin) 300 mg PO TID [facility] Last Admin: 09/20/18 12:06 Dose: 300 mg Glucagon (Glucagon Inj) 1 mg OTHER PRN PRN PRN Reason: for Hypoglycemia Protocol Ampicillin Sodium/Sulbactam (Sodium 3 gm/ Sodium Chloride) 100 mls @ 200 mls/ hr IV.SIG Q6H [facility] Last Admin: 09/20/18 16:10 Dose: 200 mls/hr Insulin Aspart (Novolog Insulin Correctional Sugar Inj) 0 unit SQ ACHS [facility]; Protocol Last Admin: 09/20/18 16:15 Dose: Not Given Lactulose (Lactulose Liq) 30 ml PO DAILY PRN PRN Reason: SEVERE CONSITIPATION Lisinopril (Prinivil) 40 mg PO DAILY [facility] Last Admin: 09/20/18 08:19 Dose: 40 mg Metformin HCl (Glucophage) 500 mg PO DAILY [facility] Last Admin: 09/20/18 08:20 Dose: 500 mg Metoprolol Tartrate (Lopressor) 25 mg PO BID [facility] Last Admin: 09/20/18 08:20 Dose: 25 mg Miscellaneous (Pill Splitter) 1 each OTHER UNSCH PRN PRN Reason: PILL SPLITTER Miscellaneous Information ([facility] Ordered Lab Info) 1 each OTHER ONCE ONE Stop: 09/21/18 00:46 Morphine Sulfate (Morphine Inj) 2 mg IV.PUSH Q4H PRN PRN Reason: BREAKTHROUGH PAIN Naloxone HCl (Narcan Inj) 0.4 mg IV.PUSH UNSCH PRN PRN Reason: SEE LABEL COMMENTS Ondansetron HCl (Zofran Inj) 4 mg IV.PUSH Q6H PRN PRN Reason: NAUSEA OR VOMITING Pantoprazole Sodium (Protonix) 40 mg PO DAILY [facility] Last Admin: 09/20/18 08:19 Dose: 40 mg Senna/Docusate Sodium (Yadira-Colace) 1 tab PO BID [facility] Last Admin: 09/20/18 08:20 Dose: 1 tab Sennosides (Senokot) 17.2 mg PO Q12H PRN PRN Reason: Moderate Constipation Sodium Chloride (Ns Flush) 2 ml IV.FLUSH BID [facility] Last Admin: 09/20/18 08:20 Dose: 2 ml Sodium Chloride (Ns Flush) 2 ml IV.FLUSH PRN PRN PRN Reason: FLUSH AFTER USING IV ACCESS Allergies Allergy/AdvReac Type Severity Reaction Status Date / Time Sulfa (Sulfonamide Allergy Intermediate hives Verified 09/14/18 21:57 Antibiotics) Home Medications Medication Instructions Recorded Confirmed Type famotidine 20 ng PO BID 09/14/18 09/14/18 History gabapentin 300 mg PO TID 09/14/18 09/14/18 History glipizide 2.5 mg PO DAILY 09/14/18 09/14/18 History lisinopril 40 mg PO DAILY 09/14/18 09/14/18 History metformin 500 mg PO DAILY 09/14/18 09/14/18 History pantoprazole 40 mg PO DAILY 09/14/18 09/14/18 History Results - Labs CBC & Chem 7: 09/18/18 08:20 09/18/18 08:20 Laboratory Results - last 24 hr 09/15/18 09/19/18 09/19/18 13:42 17:18 20:26 POC Glucose 68 103 127 H 09/20/18 09/20/18 09/20/18 08:19 12:07 16:15 POC Glucose 127 H 117 H 86 Microbiology 09/16/18 18:35 Tissue - Foot Acid Fast Bacilli Smear - Final No acid fast bacilli seen 09/16/18 18:35 Wound - Toe Acid Fast Bacilli Smear - Final No acid fast bacilli seen - Procedures Amputation of the left great toe Assessment and Plan - Assessment (1) Acute osteomyelitis of toe of left foot Code(s): M86.172 - Other acute osteomyelitis, left ankle and foot Status: Acute - Plan s/p Amputation left hallux. Pathology no evidence of osteomyelitis in 1st metatarsal head Culture = proteus/enterococcus from toe, which was removed Culture from residual foot with no growth Dressing clean, dry. Keep intact. Ok with discharge home on oral antibiotic course since bone biopsy negative Follow up in my clinic in 1 week
[2018-09-21] MEDS ORDERED: Pharmacy Ordered Lab Info OTHER ONE (00:45)
== END 2018-09-20 17:44 | disposition home health service (06) | DRG 617 ==
LOC: NEPE 16:28 → NEDA 22:57 → NEDH 09-15 05:48 → NEDA 09-15 11:37 → N04 09-15 13:06
PROVIDERS: ADMIT Internal Medicine; ATTEND Internal Medicine
CPT/HCPCS: 73630; 73720; 78320; 78399; 80048; 80202; 82565; 82948; 82962; 83735; 84443; 85025; 85610; 85651; 85652; 85730; 87015; 87040; 87070; 87077; 87102; 87116; 87186; 87205; 87206; 88304; 88305; 88307; 88311; 93005; 93306; 93922; 97110; 97116; 97163; 97164; 99285; A9503; A9585; J0295; J1100; J1580; J1815; J2370; J2543; J2704; J3010; J3370; J7030; J7040; J7120; L3250